=== PATIENT | male | born 1960 | race Caucasian/White ===

== ENCOUNTER 2016-12-11 08:33 | Inpatient (IN) | payer MEDICARE ==
[~2016-12-11 08:33] MED LIST: ACETAMINOPHEN325 MG PO; ATARAX 25 MG TA25 MG PO; ATIVAN0.5 MG PO; BAYER CHEWABLE81 MG PO; COLACE100 MG PO; DILANTIN100 MG PO; FERROUS SULFAT325 MG PO; IPRAT-ALBUT 0.5-3 ML UPD; MIRALAX17 GM PO; NICODERM C1 PATCH .1 TD; NORCO 7.5/325 T1 TA1 PO; PHENOBARBITAL97.2 MG PO; PHENYTEK300 MG PO; PLAVIX75 MG PO; PLETAL100 MG PO; PREDNISONE10 MG PO; PROAIR HFA8.5 GM INH; PROTONIX40 MG PO; ROBAXIN500 MG PO; ZOCOR10 MG PO
--- NOTE | 2016-12-11 09:00 | NUR ---
TO ROOM 2238 FROM HOME.PT WITHOUT DISTRESS.REMAINS WITHOUTT SIGNS OF BLEEDING. ASSESSMENT PER ADMIT PACK.CALL LIGHT IN REACH.MONITOR FOR NEEDS
[2016-12-11 09:22] LABS: BASOPHILS 0.8 % (0-2); EOSINOPHILS 1.9 % (0-7); HEMATOCRIT 31.9 % (42.0-54.0); IMMATURE GRANULOCYTES 0.3 % (0-5); LYMPHOCYTES 24.5 % (15-50); MCH 27.5 pg (26.0-34.0); MCHC 31.3 g/dL (31.0-37.0); MCV 87.9 fL (80.0-100.0); MEAN PLATELET VOLUME 8.3 fL (7.4-10.4); MONOCYTES 14.8 % (2-11); NEUTROPHILS 57.7 % (40-80); RBC 3.63 10x6/uL (4.20-6.10); RDW 15.2 % (11.5-14.5); WBC 7.7 10x3/uL (4.8-10.8)
[2016-12-11] MEDS ORDERED: XARELTO20 MG PO (09:32)
[2016-12-11 09:34] LABS: PLATELET COUNT 385 10x3/uL (130-400)
[2016-12-11 09:37] LABS: ALBUMIN 3.9 g/dL (3.4-5.0); ANION GAP 15.7 mmol/L (8-16); BILIRUBIN - TOTAL 0.22 mg/dL (0.2-1.3); CALCIUM 8.8 mg/dL (8.5-10.1); CARBON DIOXIDE 22.8 mmol/L (21.0-32.0); CREATININE - SERUM 1.2 mg/dL (0.6-1.3); POTASSIUM - SERUM 3.5 mmol/L (3.5-5.1); PROTEIN - SERUM 8.1 g/dL (6.4-8.2)
[2016-12-11 09:38] VITALS: BP 130/77; BMI 22.2
[2016-12-11 09:47] LABS: APTT 34.5 SECONDS (22.8-39.4); INR 0.89 (0.85-1.17); PROTIME 11.9 SECONDS (11.6-15.0)
[2016-12-11 11:14] LABS: ERYTHROCYTE SEDIMENTATION RATE 32 mm/hr (0-20)
[2016-12-11 12:00] VITALS: BP 125/77
--- NOTE | 2016-12-11 13:40 | NUR ---
UNIT 1 OF 2 PRBC'S INITIATED.PT WITHOUT REACTIONS AT THIS TIME.MONITOR FOR NEEDS
--- NOTE | 2016-12-11 13:51 | NUR ---
URINE TO LAB ORDERED
[2016-12-11 14:42] LABS: APPEARANCE CLEAR (CLEAR); BILIRUBIN NEGATIVE (NEGATIVE); COLOR STRAW (YELLOW); GLUCOSE NEGATIVE (NEGATIVE); KETONE NEGATIVE (NEGATIVE); NITRITE NEGATIVE (NEGATIVE); PROTEIN NEGATIVE (NEGATIVE); SPECIFIC GRAVITY 1.005 (1.005-1.020); UROBILINOGEN NORMAL (NORMAL)
[2016-12-11 14:44] LABS: BACTERIA MANY /hpf (NONE SEEN)
--- NOTE | 2016-12-11 17:40 | NUR ---
UNIT 1 OF 2 BRBC'S COMPLETE.PT REMAINED WITHOUT REACTIONS
[2016-12-11 20:00] VITALS: BP 126/83
--- NOTE | 2016-12-11 20:00 | NUR ---
REC'D LYING IN BED. ALERT AND ORIENTED X4. REPORTED PAIN 10/10, WILL ADMIN PAIN MEDS PRESCRIBED. DENIED NEEDS AT THIS TIME. INSTRUCTED TO CALL IF NEEDED ANYTHING. IS STILL TO REC 1 UNIT OF BLOOD. WILL CONT TO MONITOR. NO DISTRESS NOTED. BED LOW, LOCKED, CALL LIGHT IN REACH.
--- NOTE | 2016-12-11 21:30 | NUR ---
PRBC'S STARTED AT THIS TIME. VSS. WILL MONITOR. SIDE RAILS X 2. BED LOW. CALL LIGHT IN REACH.
--- NOTE | 2016-12-11 22:20 | NUR ---
BLOOD STARTED AT 2130, HAVE BEEN WATCHING FOR AND HOUR NOW, NO DISTRESS NOTED. WILL CONT TO MONITOR.
--- NOTE | 2016-12-12 00:13 | NUR ---
PTT IS 46.9 PER HEPARIN PROTOCOL. TURNED DRIP UP BY 100UNITS PER PROTOCOL NOW IS AT 9. PUT IN THE REDRAW FOR THE PTT AT 0615.
--- NOTE | 2016-12-12 00:29 | NUR ---
BLOOD FINISHED AT 0030 NO DISTRESS NOTED. WILL CONT TO MONITOR.
[2016-12-12 04:00] VITALS: BP 137/81
[2016-12-12 05:54] LABS: BASOPHILS 0.9 % (0-2); EOSINOPHILS 1.9 % (0-7); HEMATOCRIT 35.9 % (42.0-54.0); HEMOGLOBIN 11.3 g/dL (13.5-17.5); IMMATURE GRANULOCYTES 0.3 % (0-5); LYMPHOCYTES 23.8 % (15-50); MCH 27.8 pg (26.0-34.0); MCHC 31.5 g/dL (31.0-37.0); MCV 88.2 fL (80.0-100.0); MEAN PLATELET VOLUME 8.8 fL (7.4-10.4); MONOCYTES 14.4 % (2-11); NEUTROPHILS 58.7 % (40-80); PLATELET COUNT 339 10x3/uL (130-400); RBC 4.07 10x6/uL (4.20-6.10); RDW 15.5 % (11.5-14.5); WBC 6.7 10x3/uL (4.8-10.8)
[2016-12-12 06:22] LABS: ALBUMIN 3.3 g/dL (3.4-5.0); ALKALINE PHOSPHATASE 104 U/L (46-116); ALT (SGPT) 23 U/L (10-68); BILIRUBIN - TOTAL 0.25 mg/dL (0.2-1.3); CALC OSMOLALITY 275 mosm/kg (275-300); CALCIUM 8.3 mg/dL (8.5-10.1); CARBON DIOXIDE 21.8 mmol/L (21.0-32.0); CHLORIDE - SERUM 104 mmol/L (98-107); GLUCOSE 74 mg/dL (74-106); POTASSIUM - SERUM 3.7 mmol/L (3.5-5.1); PROTEIN - SERUM 7.1 g/dL (6.4-8.2); SODIUM 139 mmol/L (136-145); UREA NITROGEN 11 mg/dL (7-18); eGFR NON AFRICAN AMERICAN 82 mL/min (90-120)
--- NOTE | 2016-12-12 08:00 | NUR ---
ASSESSMENT PER FLOW SHEET.PT WITHOUT DISTRESS.CALL LIGHT IN REACH.NPO FOR PROCEDURE
[2016-12-12 08:32] VITALS: BP 133/81
--- NOTE | 2016-12-12 08:57 | NUR ---
HEPARIN DRIP STOPPED ORDERED.
--- NOTE | 2016-12-12 09:08 | HP ---
PATIENT: EVELIA SONI MEDICAL RECORD: [id number] ACCOUNT: [id number] LOCATION:D.[facility] : 60 ADMISSION DATE: 12/11/16 HISTORY AND PHYSICAL EXAMINATION Mr. Soni is going to be coming in as a direct admit on 12/11. HPI: Mr. Soni is a 56-year-old white male that has been recently experiencing bright red blood per rectum. He has a history of angioectasias that has required treatment in the past. He is on chronic anticoagulation due to severe peripheral vascular disease and has had problems with clotting. Unfortunately, he continues to smoke. He is currently on Xarelto. He is going to need to be placed on a heparin bridge and started on a prep so he can undergo colonoscopy. He has seen Dr. Otero in the past. I have discussed this case with her and she will be seeing him in consult. His hemoglobin today was 9.0, he is normally around 10. We will follow this and start a heparin drip without a bolus. PAST MEDICAL HISTORY: Significant for DVT, peripheral vascular disease, coagulopathy, systemic lupus erythematosus, and seizure disorder. He is seeing Dr. Baca for his clotting disorder. COPD, hyperlipidemia, hypertension, and osteoporosis due to chronic steroid therapy. PAST SURGICAL HISTORY: Previous surgeries include cholecystectomy, umbilical hernia repair, and fem-pop bypass by Dr. Thomas in 2007 and bypass grafts cleaned out in 2014. ALLERGIES: SULFA. CURRENT MEDICATIONS: Dilantin 100 mg capsules two b.i.d., simvastatin 10 mg at bedtime, prednisone 10 mg a day, Morgan 10 t.i.d., clonidine 0.1 mg b.i.d., ProAir q.i.d. p.r.n., Miacalcin one spray every other nostril, potassium 20 mEq daily, hydroxyzine 25 mg one q. 4-6 p.r.n. itching, lorazepam 0.5 mg b.i.d. p.r.n. anxiety, phenobarbital 100 mg b.i.d., methocarbamol 500 mg one to two b.i.d. p.r.n., pantoprazole 40 mg daily, ferrous sulfate 325 t.i.d., Xarelto 20 mg daily, and Tylenol p.r.n. FAMILY HISTORY: Significant for congestive heart failure, cancers, leukemia, COPD, and rheumatoid arthritis. SOCIAL HISTORY: The patient is . He continues to smoke about a pack per day. REVIEW OF SYSTEMS: He is complaining of some bright red blood per rectum. No abdominal pain. No chest pain. No more shortness of breath than usual. He has chronic back pain, chronic limb pain, and chronic leg pain. He has chronic claudication. PHYSICAL EXAMINATION: HEAD: Normocephalic. NECK: Soft and supple. HEART: Regular. LUNGS: Clear. ABDOMEN: Soft. EXTREMITIES: Right leg pulses nonpalpable, which is chronic. HISTORY AND PHYSICAL [id number] EVELIA SONI NEUROLOGIC: Without any gross focal deficits. IMPRESSION: 1. Lower GI bleeding. 2. History of angioectasias of the colon. 3. Coagulopathy, requiring chronic anticoagulation. 4. Peripheral vascular disease. 5. COPD. 6. Tobacco abuse. 7. Hypertension. 8. Hyperlipidemia. 9. Seizure disorder. PLAN: Admit. IV fluids. Stop Xarelto. Start heparin drip. Consult GI. Clear liquids. See orders for plan. TRANSINT:[id number] Voice Confirmation ID: [id number] DOCUMENT ID: [id number] ADARSH BANG DO at 0908 CC: [id number] DICTATION DATE: 12/10/161816 DIRECTOR OF PLAYER PERSONNEL: 12/10/161932 ADM IN [facility] [address] [place] [address]
--- NOTE | 2016-12-12 10:59 | NUR ---
Patient Name: EVELIA SONI Admission Status: Urgent Accout number: [id number] Admission Date: 12-11-2016 : 1960 Admission Diagnosis: Attending: JAKE COPPOLA Current LOS: 1 Anticipated DC Date: 12-16-2016 Planned Disposition: Home Primary Insurance: MEDICARE A & B Discharge Planning Comments: CM MET WITH PATIENT REGARDING D/C NEEDS AND PLANS. PATIENT STATED HE LIVES WITH HIS (SOO) AND THEY HAVE 4 STEPS W/O RAILS TO ENTER HOME AND NO STAIRS INSIDE. PATIENT STATED ONE OF HIS NEPHEWS WILL DRIVE HIM HOME AT DISCHARGE. PATIENT STATED HE IS INDEPENDENT WITH HIS CARE AND HAS A WALKER, WHEELCHAIR, BS COMMODE, SHOWER CHAIR, CANE, AND NEBULIZER AT HOME. PATIENTS PCP IS DR. BANG AND PHARMACY IS [facility] [place]. PATIENT REFUSING HOME HEALTH. CM WILL CONTINUE TO FOLLOW PATIENT WITH D/C NEEDS AND PLANS. PCP DR. [facility]- [phone] [place] ([place]) [phone] () Five Piece Expansion Maker Hand: Ester Hale Is the patient Alert and Oriented? Yes 0 * How many steps to enter\exit or inside your home? 4 W/O RAIL 0 * PCP DR. BANG 0 * Pharmacy [facility] [place] 0 * Preadmission Environment Home with Family 0 * ADLs Independent 0 * Equipment Bedside Commode Cane Nebulizer Shower Chair Walker Wheelchair 0 * List name and contact numbers for known caregivers / representatives who currently or will assist patient after discharge: WALKER, WHEELCHAIR, BS COMMODE, SHOWER CHAIR, CANE, NEBULIZER 0 * Community resources currently utilized None 0 * Additional services required to return to the preadmission environment? Yes 0 * Can the patient safely return to the preadmission environment? Yes 0 * Has this patient been hospitalized within the prior 30 days at any hospital? No 0 Grand Total: 0
[2016-12-12 12:03] VITALS: BP 143/79
--- NOTE | 2016-12-12 14:13 | NUR ---
PRE MEDS ORDERED
--- NOTE | 2016-12-12 14:19 | NUR ---
TO GI LAB
--- NOTE | 2016-12-12 19:13 | NUR ---
HAS REMAINED WITHOUT BLEEDING. PT REMAINS WITHOUT DISTRESS. DENIES NEEDS. CONT PLAN OF CARE
[2016-12-12 20:00] VITALS: BP 139/74
[2016-12-13] VITALS (7 sets, daily range): BP systolic 119–146; BP diastolic 64–80
[2016-12-13 05:41] LABS: BASOPHILS 0.7 % (0-2); EOSINOPHILS 3.4 % (0-7); HEMATOCRIT 35.6 % (42.0-54.0); HEMOGLOBIN 11.1 g/dL (13.5-17.5); IMMATURE GRANULOCYTES 0.2 % (0-5); LYMPHOCYTES 27.3 % (15-50); MCH 27.5 pg (26.0-34.0); MCHC 31.2 g/dL (31.0-37.0); MCV 88.1 fL (80.0-100.0); MEAN PLATELET VOLUME 8.6 fL (7.4-10.4); MONOCYTES 12.3 % (2-11); NEUTROPHILS 56.1 % (40-80); PLATELET COUNT 330 10x3/uL (130-400); RBC 4.04 10x6/uL (4.20-6.10); RDW 15.5 % (11.5-14.5); WBC 5.4 10x3/uL (4.8-10.8)
[2016-12-13 06:17] LABS: ALBUMIN 3.2 g/dL (3.4-5.0); ALKALINE PHOSPHATASE 95 U/L (46-116); ALT (SGPT) 19 U/L (10-68); CALC OSMOLALITY 270 mosm/kg (275-300); CALCIUM 8.2 mg/dL (8.5-10.1); CARBON DIOXIDE 19.8 mmol/L (21.0-32.0); CHLORIDE - SERUM 108 mmol/L (98-107); GLUCOSE 72 mg/dL (74-106); POTASSIUM - SERUM 3.5 mmol/L (3.5-5.1); PROTEIN - SERUM 6.4 g/dL (6.4-8.2); SODIUM 137 mmol/L (136-145); eGFR NON AFRICAN AMERICAN 82 mL/min (90-120)
[2016-12-13 06:21] LABS: UREA NITROGEN 8 mg/dL (7-18)
--- NOTE | 2016-12-13 08:00 | NUR ---
ASSESSMENT PER FLOW SHEET.PT WITHOUT DISTRESS.DENIES NEEDS AT PRESENT.CALL LIGHT IN REACH.
--- NOTE | 2016-12-13 10:00 | NUR ---
HEPARIN OFF ORDERED
--- NOTE | 2016-12-13 11:00 | NUR ---
CONSENTS TO CHART ORDERED
--- NOTE | 2016-12-13 14:57 | NUR ---
BACK FROM SURGERY.PT VERY ANXIOUS AND IS MAD. HE IS WANTING UP TO SHOWER.INSTRUCTED PT HE HAD TO WAKE FIRST.IV HEPARIN RESUMED PER DR DIALLO.MONITOR FOR NEEDS
[2016-12-14] VITALS: BP 132/66
[2016-12-14 04:00] VITALS: BP 141/71
[2016-12-14 06:18] LABS: EOSINOPHILS 2.4 % (0-7); HEMATOCRIT 37.7 % (42.0-54.0); HEMOGLOBIN 11.7 g/dL (13.5-17.5); IMMATURE GRANULOCYTES 0.1 % (0-5); LYMPHOCYTES 24.9 % (15-50); MEAN PLATELET VOLUME 9.1 fL (7.4-10.4); MONOCYTES 9.6 % (2-11); PLATELET COUNT 323 10x3/uL (130-400); RBC 4.18 10x6/uL (4.20-6.10); RDW 15.3 % (11.5-14.5)
[2016-12-14 06:19] LABS: MCV 90.2 fL (80.0-100.0); WBC 8.2 10x3/uL (4.8-10.8)
[2016-12-14 06:35] LABS: ALBUMIN 3.4 g/dL (3.4-5.0); ANION GAP 14.1 mmol/L (8-16); BILIRUBIN - TOTAL 0.23 mg/dL (0.2-1.3); CALCIUM 8.1 mg/dL (8.5-10.1); CARBON DIOXIDE 23.7 mmol/L (21.0-32.0); CREATININE - SERUM 1.1 mg/dL (0.6-1.3); POTASSIUM - SERUM 3.8 mmol/L (3.5-5.1); PROTEIN - SERUM 7.1 g/dL (6.4-8.2)
[2016-12-14 08:45] VITALS: BP 143/79
[2016-12-14 11:07] VITALS: BP 151/86
--- NOTE | 2016-12-14 14:45 | NUR ---
PATIENT RECIEVED DISCHARGE INSTRUCTIONS. VERBALIZED UNDERSTANDING. NO QUESTIONS AT THIS TIME. IV X 2 REMOVED WITH CATH TIPS INTACT. AWAITING FAMILY FOR TRANSPORTATION. CALL LIGHT WITHIN REACH.
--- NOTE | 2016-12-20 12:36 | OP ---
PATIENT NAME: EVELIA SONI MEDICAL RECORD: [id number] :60 LOCATION:D.[facility] ADMISSION DATE:12/11/16 SURGEON: KP DIALLO MD DATE OF OPERATION: 12/13/2016 PREOPERATIVE DIAGNOSES: 1. Lower gastrointestinal bleed. 2. Internal hemorrhoids. 3. Chronic obstructive pulmonary disease. 4. Acute blood-loss anemia. 5. Peripheral vascular disease. 6. Factor V Leiden deficiency. 7. History of deep vein thrombosis, on chronic Coumadin use. POSTOPERATIVE DIAGNOSES: 1. Lower gastrointestinal bleed. 2. Internal hemorrhoids. 3. Chronic obstructive pulmonary disease. 4. Acute blood-loss anemia. 5. Peripheral vascular disease. 6. Factor V Leiden deficiency. 7. History of deep vein thrombosis, on chronic Coumadin use. PROCEDURE IN DETAIL: Anal exam under anesthesia with hemorrhoid banding times 3. SURGEON: Kp Diallo MD REPORT OF PROCEDURE: The patient was placed in lithotomy position and the perianal region was prepped and draped in sterile fashion. An anoscope was inserted and a 360-degree inspection was performed. The patient had a large mixed hemorrhoid, which was mainly an internal component, but was extending past the dentate line. This was friable and felt to be the likely cause of the bleeding. This was right in the midline in the 6 o'clock position. On the left lateral aspect, there was also an internal hemorrhoid, which was smaller and a final right posterior hemorrhoid again was a smaller internal type. These 3 hemorrhoids were all banded with good collection of tissue found in each group. There was no sign of any bleeding at the conclusion of the case. I infused 1 mL of 0.25% Marcaine with epi into the surrounding tissues. COMPLICATIONS: None. CONDITION: Stable. ANESTHESIA: General endotracheal. BLOOD LOSS: Minimal. TRANSINT:[id number] Voice Confirmation ID: [id number] DOCUMENT ID: [id number] OPERATIVE REPORT [id number] NAEEVELIA KP COCHRAN MD at 1236 CC: [id number] DICTATION DATE: 12/13/16 1419 ROUGH AND TRUING MACHINE OPERATOR: 12/13/16 1522 DIS IN 12/14/16 [place] [address]
== END 2016-12-14 16:26 | disposition home or self-care (01) | DRG 348 ==
LOC: D.MS 08:33
PROVIDERS: Family Medicine; Internal Medicine Gastroenterology; ADMIT Family Medicine
PROC: 0DBL8ZZ Excision of Transverse Colon, Via Natural or Artificial Opening Endoscopic (ICD-10-PCS; principal; 2016-12-12 14:30)
PROC: 06LY0CC Occlusion of Hemorrhoidal Plexus with Extraluminal Device, Open Approach (ICD-10-PCS; 2016-12-13)
DX: K64.8 Other hemorrhoids (principal); F17.203 Nicotine dependence unspecified, with withdrawal; D62 Acute posthemorrhagic anemia; D68.51 Activated protein C resistance; G40.909 Epilepsy, unspecified, not intractable, without status epilepticus; J44.9 Chronic obstructive pulmonary disease, unspecified; E78.5 Hyperlipidemia, unspecified; M81.8 Other osteoporosis without current pathological fracture; K55.20 Angiodysplasia of colon without hemorrhage; T38.0X5A Adverse effect of glucocorticoids and synthetic analogues, initial encounter; G89.29 Other chronic pain; I10 Essential (primary) hypertension; M32.9 Systemic lupus erythematosus, unspecified

== ENCOUNTER 2017-10-30 19:04 | Emergency (ER) | payer MEDICARE ==
[~2017-10-30] VITALS: Ht 175.3 cm; Wt 68.2 kg
[~2017-10-30 19:04] MED LIST changes: +ASPIRIN325 MG PO; +BACLOFEN10 MG PO; +CATAPRES0.1 MG PO; +FLORAJEN3 CAPS460 MG PO; +HYDROCODONE-APA1 TAB PO; +KEFLEX500 MG PO; +MIACALCIN NASA3.7 ML NASAL; +NICODERM C1 PATCH .1 TRANSDERM; +VENTOLIN HFA18 GM INH; +XARELTO20 MG PO
[2017-10-30 19:06] VITALS: Ht 175.3 cm; Wt 68.2 kg
[2017-10-30 19:25] LABS: BASOPHILS 1.1 % (0-2); EOSINOPHILS 2.6 % (0-7); HEMATOCRIT 33.1 % (42.0-54.0); HEMOGLOBIN 10.6 g/dL (13.5-17.5); IMMATURE GRANULOCYTES 0.2 % (0-5); LYMPHOCYTES 24.8 % (15-50); MCH 30.8 pg (26.0-34.0); MCV 96.2 fL (80.0-100.0); MEAN PLATELET VOLUME 8.6 fL (7.4-10.4); MONOCYTES 11.4 % (2-11); NEUTROPHILS 59.9 % (40-80); RBC 3.44 10x6/uL (4.20-6.10); RDW 13.1 % (11.5-14.5); WBC 6.2 10x3/uL (4.8-10.8)
[2017-10-30 19:27] LABS: PLATELET COUNT 283 10x3/uL (130-400)
[2017-10-30 19:32] LABS: APTT 38.4 SECONDS (22.8-39.4)
[2017-10-30 19:36] LABS: INR 1.1 (0.85-1.17); PROTIME 13.8 SECONDS (11.6-15.0)
[2017-10-30 19:39] LABS: ALBUMIN 3.3 g/dL (3.4-5.0); ALKALINE PHOSPHATASE 158 U/L (46-116); ALT (SGPT) 19 U/L (10-68); BILIRUBIN - TOTAL 0.12 mg/dL (0.2-1.3); CALC OSMOLALITY 272 mosm/kg (275-300); CALCIUM 8.4 mg/dL (8.5-10.1); CARBON DIOXIDE 24.6 mmol/L (21.0-32.0); CHLORIDE - SERUM 104 mmol/L (98-107); GLUCOSE 81 mg/dL (74-106); POTASSIUM - SERUM 4.1 mmol/L (3.5-5.1); PROTEIN - SERUM 7.2 g/dL (6.4-8.2); SODIUM 136 mmol/L (136-145); UREA NITROGEN 18 mg/dL (7-18); eGFR NON AFRICAN AMERICAN 82 mL/min (90-120)
[2017-10-31 00:03] VITALS: BP 126/78
== END 2017-10-31 00:04 | disposition home or self-care (01) ==
LOC: D.ER 19:04
PROVIDERS: Family Medicine
DX: R04.0 Epistaxis (principal); Z79.01 Long term (current) use of anticoagulants; Z86.718 Personal history of other venous thrombosis and embolism; J44.9 Chronic obstructive pulmonary disease, unspecified; F17.200 Nicotine dependence, unspecified, uncomplicated

== ENCOUNTER 2018-02-23 12:24 | Emergency (ER) | payer MEDICARE ==
[~2018-02-23] VITALS: Ht 175.3 cm; Wt 67.7 kg
[2018-02-23 12:30] VITALS: Ht 175.3 cm; Wt 67.7 kg
[2018-02-23 12:55] LABS: BASOPHILS 0.8 % (0-2); EOSINOPHILS 2.6 % (0-7); HEMATOCRIT 35.3 % (42.0-54.0); IMMATURE GRANULOCYTES 0.1 % (0-5); LYMPHOCYTES 18.4 % (15-50); MCH 28.1 pg (26.0-34.0); MCHC 31.2 g/dL (31.0-37.0); MCV 90.3 fL (80.0-100.0); MEAN PLATELET VOLUME 8.8 fL (7.4-10.4); MONOCYTES 10.7 % (2-11); NEUTROPHILS 67.4 % (40-80); RBC 3.91 10x6/uL (4.20-6.10); RDW 14.6 % (11.5-14.5); WBC 7.3 10x3/uL (4.8-10.8)
[2018-02-23 13:07] LABS: ALBUMIN 3.8 g/dL (3.4-5.0); ANION GAP 15.9 mmol/L (8-16); BILIRUBIN - TOTAL 0.19 mg/dL (0.2-1.3); CALCIUM 8.9 mg/dL (8.5-10.1); CARBON DIOXIDE 23.4 mmol/L (21.0-32.0); CREATININE - SERUM 1.4 mg/dL (0.6-1.3); INR 0.99 (0.85-1.17); PLATELET COUNT 363 10x3/uL (130-400); POTASSIUM - SERUM 4.3 mmol/L (3.5-5.1); PROTEIN - SERUM 8.2 g/dL (6.4-8.2); PROTIME 12.6 SECONDS (11.6-15.0)
[2018-02-23 13:09] LABS: D-DIMER-QUANTITATIVE 0.61 ug/mLFEU (0.20-0.54)
[2018-02-23] MEDS ORDERED: GABAPENTIN100 MG PO (14:16)
[2018-02-23 15:11] VITALS: BP 156/96
== END 2018-02-23 15:29 | disposition home or self-care (01) ==
LOC: D.ER 12:24
PROVIDERS: Emergency Medicine
DX: M79.662 Pain in left lower leg (principal); M79.661 Pain in right lower leg; Z86.718 Personal history of other venous thrombosis and embolism; G62.9 Polyneuropathy, unspecified; G40.909 Epilepsy, unspecified, not intractable, without status epilepticus; J44.9 Chronic obstructive pulmonary disease, unspecified

== ENCOUNTER → 2018-02-25 08:55 | Outpatient (CLI) | payer MEDICARE ==
[2018-02-23 12:30] VITALS: BMI 22.0
[~2018-02-25 08:55] MED LIST changes: +GABAPENTIN100 MG PO
== END | disposition home or self-care (01) ==
LOC: D.CT 08:55
DX: I73.9 Peripheral vascular disease, unspecified (principal)

== ENCOUNTER 2018-07-01 08:07 | Outpatient (CLI) | payer MEDICARE ==
[~2018-07-01] VITALS: Ht 175.3 cm; Wt 66.4 kg
[2018-07-01 09:22] VITALS: BP 116/68; Ht 175.3 cm; Wt 66.4 kg
== END 2018-07-01 13:40 | disposition home or self-care (01) ==
LOC: D.OPS 08:07
PROVIDERS: ATTEND Family Medicine
DX: D64.9 Anemia, unspecified (principal)

== ENCOUNTER → 2018-07-16 10:28 | Day surgery (SDC) | payer MEDICARE ==
[2018-07-01 09:22] VITALS: BMI 21.6
== END | disposition home or self-care (01) ==
LOC: D.OPS 10:28
PROVIDERS: ATTEND Family Medicine
DX: D64.9 Anemia, unspecified (principal)

== ENCOUNTER 2018-07-16 13:00 | Outpatient (CLI) | payer MEDICARE ==
[2018-07-01 09:22] VITALS: BMI 21.6
--- NOTE | 2018-07-16 15:02 | NUR ---
1055-RECD TO OUTPATIENT. TO WAITING ROOM. WAS SCHEDULED FOR YESTERDAY BUT DIDNT WANT TO COME YESTERDAY. EXPLAINED WILL BE A COUPLE OF HOURS BUT WILL WORK HIM IN. 1400-TO ROOM. PATIENT REFUSES BLOOD TRANSFUSION UNLESS GETTING SCOPE WITH DR. MATA. STATES HE IS NOT SCHEDULED FOR SCOPE TODAY. HE SAYS HE HAS AN APPOINTMENT TO SEE DR MATA BUT SINCE HE IS HERE TODAY TELL HER TO COME TO HIS ROOM TO SEE HIM. EXPLAINED USUALLY GET BLOOD FIRST THEN INVESTIGATES WHY BLOOD COUNT IS LOW. DISCUSSED AT LENGTH. PATIENT OBSTINATE ABOUT HAVING A SCOPE TODAY. HAS NOT BEEN NPO. ADVISED PATIENT HE HAS TO CONSENT TO BLOOD BEFORE WE GIVE IT. HE WILL THINK ABOUT IT. 1445-RETURNED TO ROOM, PATIENT HAS LEFT WITHOUT TREATMENT. BLOOD BANK NOTIFIED.
== END 2018-07-16 14:45 | disposition home or self-care (01) ==
LOC: D.OPS 13:00
PROVIDERS: ATTEND Family Medicine
DX: D64.9 Anemia, unspecified (principal)

== ENCOUNTER 2018-07-17 20:11 | Emergency (ER) | payer MEDICARE ==
[2018-07-17 20:24] VITALS: BMI 21.6
[2018-07-17 21:01] LABS: BASOPHILS 0.9 % (0-2); EOSINOPHILS 0.9 % (0-7); HEMATOCRIT 26.1 % (42.0-54.0); HEMOGLOBIN 7.7 g/dL (13.5-17.5); IMMATURE GRANULOCYTES 0.2 % (0-5); LYMPHOCYTES 18.2 % (15-50); MCH 23.2 pg (26.0-34.0); MCHC 29.5 g/dL (31.0-37.0); MCV 78.6 fL (80.0-100.0); MEAN PLATELET VOLUME 8.4 fL (7.4-10.4); MONOCYTES 7.9 % (2-11); NEUTROPHILS 71.9 % (40-80); PLATELET COUNT 426 10x3/uL (130-400); RBC 3.32 10x6/uL (4.20-6.10); RDW 17.4 % (11.5-14.5); WBC 6.4 10x3/uL (4.8-10.8)
[2018-07-17 21:11] LABS: APTT 33.8 SECONDS (22.8-39.4); INR 1.06 (0.85-1.17); PROTIME 13.3 SECONDS (11.6-15.0)
[2018-07-17 21:26] LABS: ALBUMIN 3.6 g/dL (3.4-5.0); ANION GAP 17.2 mmol/L (8-16); BILIRUBIN - TOTAL 0.21 mg/dL (0.2-1.3); CALCIUM 8.5 mg/dL (8.5-10.1); CARBON DIOXIDE 21.6 mmol/L (21.0-32.0); CREATININE - SERUM 1.3 mg/dL (0.6-1.3); POTASSIUM - SERUM 3.8 mmol/L (3.5-5.1); PROTEIN - SERUM 7.7 g/dL (6.4-8.2)
[2018-07-18 02:22] VITALS: BP 135/77
== END 2018-07-18 02:19 | disposition home or self-care (01) ==
LOC: D.ER 20:11
PROVIDERS: Family Medicine
DX: D64.9 Anemia, unspecified (principal)

== ENCOUNTER 2018-08-23 14:16 | Inpatient (IN) | payer MEDICARE, MEDICAID ==
[~2018-08-23] VITALS: Ht 175.3 cm; Wt 59.4 kg
[2018-08-23 15:23] LABS: BASOPHILS 0.6 % (0-2); EOSINOPHILS 0.3 % (0-7); HEMATOCRIT 23.6 % (42.0-54.0); IMMATURE GRANULOCYTES 0.2 % (0-5); LYMPHOCYTES 12.8 % (15-50); MCH 23.6 pg (26.0-34.0); MCHC 29.7 g/dL (31.0-37.0); MCV 79.7 fL (80.0-100.0); MEAN PLATELET VOLUME 8.6 fL (7.4-10.4); MONOCYTES 9.6 % (2-11); NEUTROPHILS 76.5 % (40-80); PLATELET COUNT 342 10x3/uL (130-400); RBC 2.96 10x6/uL (4.20-6.10); RDW 18.6 % (11.5-14.5); WBC 6.6 10x3/uL (4.8-10.8)
[2018-08-23 15:46] LABS: ALBUMIN 3.6 g/dL (3.4-5.0); ANION GAP 18.2 mmol/L (8-16); BILIRUBIN - TOTAL 0.21 mg/dL (0.2-1.3); CALCIUM 8.8 mg/dL (8.5-10.1); CARBON DIOXIDE 19.8 mmol/L (21.0-32.0); CREATININE - SERUM 1.4 mg/dL (0.6-1.3); PROTEIN - SERUM 8.1 g/dL (6.4-8.2)
--- NOTE | 2018-08-23 16:26 | NUR ---
PT SITTING UP IN BED. NO DISTRESS NOTED AT THIS TIME. VSS. WILL CONTINUE TO MONITOR. FAMILY AT BEDSIDE.
[2018-08-23 17:00] VITALS: BP 129/72
--- NOTE | 2018-08-23 20:35 | NUR ---
PT PHYSICALLY LEFT ED AT THIS TIME
--- NOTE | 2018-08-23 20:45 | NUR ---
RECEIVED PT FROM ER TO ROOM 2302. PT ATTACHED TO MONITORS, MONITORS ARE ALL WORKING CORRECTLY. ADMISSION INFORMATION COMPLETED, SEE FLOWSHEET FOR DETAILS. PT ARRIVED ON UNIT WITH FIRST OF TWO UNITS OF PRBC'S INFUSING. PT'S FAMILY AT BEDSIDE SHORTLY AFTER ARRIVAL TO HELP ANSWER QUESTIONS. NO SIGNS OF ACUTE DISTRESS. WILL CONTINUE TO MONITOR.
[2018-08-23 21:00] VITALS: BP 143/84
[2018-08-23] MEDS ORDERED: PROTONIX40 MG PO (21:22)
[2018-08-23 21:49] VITALS: BP 152/85; BMI 19.3
[2018-08-23 22:00] VITALS: BP 134/78
--- NOTE | 2018-08-23 22:50 | NUR ---
MOVING PT TO CV5.
[2018-08-23 23:30] VITALS: BP 120/74
--- NOTE | 2018-08-23 23:34 | NUR ---
PT RECEIVED TO UNIT AT 2315 VIA WHEELCHAIR. PT TRANSFERRED SELF TO BED WITHOUT DIFFICULTY. PLACED ON MONITOR. VSS. PT GIVEN CLEAR LIQUIDS PER REQUEST. NO COMPLAINTS OF PAIN. RECEIVING SECOND UNIT OF PRBC. CALL LIGHT IN REACH. WILL CONTINUE TO OBSERVE.
[2018-08-24] VITALS (14 sets, daily range): BP systolic 106–188; BP diastolic 65–87; Ht 175.3 cm; Wt 59.4 kg
--- NOTE | 2018-08-24 01:15 | NUR ---
PT MONITORS NOT READING SPO2 WITH LINES UNPLUGGED AND REPLUGGED, RECEIVING A READING OF 98% AT THIS TIME. PT WAKING UP AND USING URINAL AND EMPTIED. NO NEEDS MADE KNOWN. WILL CONTINUE TO OBSERVE. CALL LIGHT IN REACH.
--- NOTE | 2018-08-24 01:55 | NUR ---
PT ASSISTED TO BATHROOM, URINE ONLY NOTED. AMULATION SLOW AND STEADY. ASSIST GIVEN WITH IV PUMP AND MONITOR LINES. PT BACK IN BED ON MONITOR. VSS. CALL LIGHT IN REACH. WILL CONTINUE TO OBSERVE.
--- NOTE | 2018-08-24 03:19 | NUR ---
PT RESTING WITH EYES CLOSED AND CHEST RISING. EASILY AWOKEN TO VERBAL STIMULI. REASSESSMENT COMPLETED, SEE FLOW SHEET. CALL LIGHT IN REACH. WILL CONTINUE TO OBSERVE.
[2018-08-24 03:53] LABS: BASOPHILS 0.6 % (0-2); EOSINOPHILS 1.7 % (0-7); HEMATOCRIT 26.3 % (42.0-54.0); HEMOGLOBIN 8.2 g/dL (13.5-17.5); IMMATURE GRANULOCYTES 0.2 % (0-5); LYMPHOCYTES 19.6 % (15-50); MCH 24.8 pg (26.0-34.0); MCHC 31.2 g/dL (31.0-37.0); MCV 79.5 fL (80.0-100.0); MEAN PLATELET VOLUME 8.6 fL (7.4-10.4); MONOCYTES 11.4 % (2-11); NEUTROPHILS 66.5 % (40-80); PLATELET COUNT 277 10x3/uL (130-400); RBC 3.31 10x6/uL (4.20-6.10); RDW 18.2 % (11.5-14.5)
[2018-08-24 03:56] LABS: WBC 4.8 10x3/uL (4.8-10.8)
[2018-08-24 04:08] LABS: CALCIUM 7.8 mg/dL (8.5-10.1); CARBON DIOXIDE 20.5 mmol/L (21.0-32.0); CHLORIDE - SERUM 105 mmol/L (98-107); MAGNESIUM - SERUM 1.9 mg/dL (1.8-2.4); PHOSPHOROUS 3.3 mg/dL (2.5-4.9); POTASSIUM - SERUM 3.6 mmol/L (3.5-5.1); SODIUM 137 mmol/L (136-145)
[2018-08-24 04:14] LABS: CALC OSMOLALITY 274 mosm/kg (275-300); CREATININE - SERUM 0.9 mg/dL (0.6-1.3); GLUCOSE 74 mg/dL (74-106); UREA NITROGEN 17 mg/dL (7-18); eGFR NON AFRICAN AMERICAN > 90 mL/min (90-120)
--- NOTE | 2018-08-24 05:19 | NUR ---
PT WITH EYES CLOSED AND CHEST RISING. NO S/S OF DISTRESS. CALL LIGHT IN REACH. WILL CONTINUE TO OBSERVE.
--- NOTE | 2018-08-24 07:00 | NUR ---
REPORT RECEIVED FROM THE OFF GOING RN. SEE ASSESSMENT IN THE PTS FLOW SHEET. STATED HE HAD A BM THIS AM THAT WAS NORMAL AND NO BLOOD NOTED. PT DENIES PAIN. NO NEEDS AT THIS TIME. PT NOTED TO HAVE EXPITORY WHEEZING. PT STATS THAT HE HAS COPD AND TAKES BREATHING TREATMENTS AT HIS HOUSE. ENOUCRAGE TCDB QH. PT DENIES SOB AT THIS TIME. CALL LIGHT IN REACH. WILL CONT POC.
--- NOTE | 2018-08-24 08:31 | NUR ---
DR CLINE PAGED ABOUT THE PTS CONSULT. ORDERS PUT IN BY DR CLINE FOR EGD. HOLD AM PO MEDS UNTIL AFTER THE PROCEDURE.
[2018-08-24 08:42] LABS: APTT 33.7 SECONDS (22.8-39.4); INR 1.1 (0.85-1.17); PROTIME 13.7 SECONDS (11.6-15.0)
[2018-08-24 08:43] LABS: D-DIMER-QUANTITATIVE 0.76 ug/mLFEU (0.20-0.54)
[2018-08-24 08:51] LABS: PHENOBARBITAL 23.9 ug/mL (15.0-40.0); PHENYTOIN (DILANTIN) 4.4 ug/mL (10.0-20.0)
--- NOTE | 2018-08-24 08:51 | NUR ---
CONSENTS FOR EGD AND ANESTESIA SIGNED BY THE PT. GI LAB TEAM CAME AND GOT THE PT WITH THE CHART. PT LEFT IN A STABLE CONDITION.
--- NOTE | 2018-08-24 09:30 | NUR ---
PT ARRIVED BACK IN THE UNIT AND HOOKED BACK TO ICU MONITORS. VSS. NO S/SX OF DISTRESS/DISCOMFORT NOTED. CALL LIGHT IN REACH. WILL CONT POC.
--- NOTE | 2018-08-24 10:38 | NUR ---
SPOKE WITH DR AYON. UPDATED ON WHAT THEY DID IN THE GI LAB. DR CLINE OK'D TO TRANSFER TO THE FLOOR. DR AYON ALSO OK TO TRANSFER TO THE FLOOR.
--- NOTE | 2018-08-24 16:43 | MORECARE ---
CASE MANAGEMENT DISCHARGE SUMMARY PATIENT: EVELIA SONI CLARITA UNIT: [id number] ADM DATE: 08/23/18 AGE: 58 : 60 SEX: M ROOM/BED: [facility] AUTHOR: HERBIE LANGLEY PHYSICIAN: REFERRING PHYSICIAN: JIM AYON MD DATE OF SERVICE: 08/24/18 Discharge Plan Patient Name: EVELIA SONI [facility] [facility] 1960 Planned Disposition: Home Anticipated Discharge Date: Discharge Date: Expected LOS: Initial Reviewer: [email or web address] Initial Review Date: 08/23/2018 Generated: 08/24/18 5:42 pm DCPIA - Discharge Planning Initial Assessment Updated by [email or web address]: Sonja Caro on 08/24/18 4:42 pm * Is the patient Alert and Oriented? Yes * How many steps to enter\exit or inside your home? * PCP BETI * [facility] * Preadmission Environment Home Alone * ADLs Independent * Equipment Nebulizer * List name and contact numbers for known caregivers / representatives who currently or will assist patient after discharge: MICA SONI [facility]- [phone] * Verbal permission to speak to the caregivers and representatives has been obtained from the patient. N/A * Community resources currently utilized None * Additional services required to return to the preadmission environment? No * Can the patient safely return to the preadmission environment? Yes * Has this patient been hospitalized within the prior 30 days at any hospital? No Patient Name: EVELIA SONI Page [id number] at 1643 All edits/amendments must be made on the electronic document DICTATION DATE: 08/24/181641 SOLUTIONS OPERATOR: SANG 08/24/181641 RPT#: [id number] DC DATE: STATUS: ADM IN [facility] [address] [place] [address] END OF REPORT
--- NOTE | 2018-08-24 16:54 | MORECARE ---
CASE MANAGEMENT DISCHARGE SUMMARY PATIENT: EVELIA SONI UNIT: [id number] ADM DATE: 08/23/18 AGE: 58 : 60 SEX: M [facility] AUTHOR: KORIN,DOC PHYSICIAN: REFERRING PHYSICIAN: JIM AYON MD DATE OF SERVICE: 08/24/18 Discharge Plan Patient Name: EVELIA SONI Facility: [facility]:[place] : 1960 Planned Disposition: Home Anticipated Discharge Date: Discharge Date: Expected LOS: Initial Reviewer: [email or web address] Initial Review Date: 08/23/2018 Generated: 08/24/18 5:54 pm Comments DCP- Discharge Planning Updated by [email or web address]: Sonja Caro on 08/24/18 3:[address] Patient Name: EVELIA SONI Admission Status: ER Accout number: [id number] Admission Date: 08-23-2018 : 1960 Admission Diagnosis: Attending: JIM AYON Current LOS: 1 Anticipated DC Date: Planned Disposition: Home Primary Insurance: [facility] MEDICARE SOLUTIONS Discharge Planning Comments: CM met with patient at bedside after explaining CM role and obtaining verbal consent. Patient lives at home alone and plans to return there upon discharge. Patient feels this would be a safe discharge. CM discussed availability / needs of home health and medical equipment. Patient denies any discharge needs at this time. Patient states he has a nebulizer at home. Patient states he will have his family drive him home upon discharge. CM will continue to follow and assist as needed with discharge planning / needs. Roofer: Sonja Caro DCPIA - Discharge Planning Initial Assessment Updated by [email or web address]: Sonja Caro on 08/24/18 4:42 pm * Is the patient Alert and Oriented? Yes * How many steps to enter\exit or inside your home? * PCP BETI * [facility] * Preadmission Environment Home Alone * ADLs Independent * Equipment Nebulizer * List name and contact numbers for known caregivers / representatives who currently or will assist patient after discharge: MICA SONI - BROTHER- [phone] * Verbal permission to speak to the caregivers and representatives has been obtained from the patient. N/A * Community resources currently utilized None * Additional services required to return to the preadmission environment? No * Can the patient safely return to the preadmission environment? Yes * Has this patient been hospitalized within the prior 30 days at any hospital? No Last DP export: 08/24/18 3:42 p Patient Name: EVELIA SONI Page 32597 at 1654 All edits/amendments must be made on the electronic document DICTATION DATE: 08/24/181653 UNIVERSITY DEMONSTRATOR: SANG 08/24/181653 RPT#: [id number] DC DATE: STATUS: ADM IN [facility] [address] [place] [address] END OF REPORT
--- NOTE | 2018-08-24 17:57 | NUR ---
REPORT GIVEN TO NICKY FIELDS IN MED 3. PT BELONINGS ACCOUTNED FOR. PT TRANSFERED IN A STABLE CONDITION.
--- NOTE | 2018-08-24 20:05 | NUR ---
PATIENT RESTING IN BED AND REQUESTED A SNACK AND DRINK WITH HIS NIGHT MEDS. PATIENT DENIES OTHER NEEDS AT THIS TIME. BED IN LOWEST POSITION AND CALL LIGHT WITHIN REACH. ENCOURAGED THE PATIENT TO CALL IF HE HAS OTHER NEEDS. WILL CONTINUE TO MONITOR.
[2018-08-25 00:54] VITALS: BP 129/85
[2018-08-25 05:25] VITALS: BP 131/75
[2018-08-25 08:00] VITALS: BP 125/81
[2018-08-25 12:31] VITALS: BP 159/99
--- NOTE | 2018-08-26 13:21 | MORECARE ---
CASE MANAGEMENT DISCHARGE SUMMARY PATIENT: EVELIA SONI UNIT: [id number] ADM DATE: 08/23/18 AGE: 58 : 60 SEX: M ROOM/BED: D.1202 AUTHOR: KORIN,DOC PHYSICIAN: REFERRING PHYSICIAN: JIM AYON MD DATE OF SERVICE: 08/26/18 Discharge Plan Patient Name: EVELIA SONI Facility: [facility]:[place] : 1960 Planned Disposition: Home Anticipated Discharge Date: Discharge Date: 08/25/2018 Expected LOS: Initial Reviewer: [email or web address] Initial Review Date: 08/23/2018 Generated: 08/26/18 2:20 pm Comments DCP- Discharge Planning Updated by [email or web address]: Sonja Caro on 08/24/18 3:[address] Patient Name: EVELIA SONI Admission Status: ER Accout number: [id number] Admission Date: 08-23-2018 : 1960 Admission Diagnosis: Attending: JIM AYON Current LOS: 1 Anticipated DC Date: Planned Disposition: Home Primary Insurance: [facility] MEDICARE SOLUTIONS Discharge Planning Comments: CM met with patient at bedside after explaining CM role and obtaining verbal consent. Patient lives at home alone and plans to return there upon discharge. Patient feels this would be a safe discharge. CM discussed availability / needs of home health and medical equipment. Patient denies any discharge needs at this time. Patient states he has a nebulizer at home. Patient states he will have his family drive him home upon discharge. CM will continue to follow and assist as needed with discharge planning / needs. Metalsmith Helper: Sonja Caro DCPIA - Discharge Planning Initial Assessment Updated by [email or web address]: Sonja Caro on 08/24/18 4:42 pm * Is the patient Alert and Oriented? Yes * How many steps to enter\exit or inside your home? * PCP BETI * [facility] * Preadmission Environment Home Alone * ADLs Independent * Equipment Nebulizer * List name and contact numbers for known caregivers / representatives who currently or will assist patient after discharge: MICA SONI - BROTHER- [phone] * Verbal permission to speak to the caregivers and representatives has been obtained from the patient. N/A * Community resources currently utilized None * Additional services required to return to the preadmission environment? No * Can the patient safely return to the preadmission environment? Yes * Has this patient been hospitalized within the prior 30 days at any hospital? No Last DP export: 08/24/18 3:54 p Patient Name: EVELIA SONI Page 60635 at 1321 All edits/amendments must be made on the electronic document DICTATION DATE: 08/26/18 1320 ECG TECHNICIAN: SANG 08/26/18 1320 RPT#: [id number] DC DATE:08/25/18 STATUS: DIS IN [facility] [address] [place] [address] END OF REPORT
== END 2018-08-25 14:07 | disposition home or self-care (01) | DRG 812 ==
LOC: D.ER 14:16 → D.ICU 18:39 → D.CVICU 18:39 → D.M3 08-24 17:58
PROVIDERS: Family Medicine; Internal Medicine Gastroenterology; ADMIT Internal Medicine Nephrology; ATTEND Internal Medicine Nephrology
PROC: 0DB78ZX Excision of Stomach, Pylorus, Via Natural or Artificial Opening Endoscopic, Diagnostic (ICD-10-PCS; principal; 2018-08-24 09:05)
DX: D50.9 Iron deficiency anemia, unspecified (principal); N17.9 Acute kidney failure, unspecified; J44.1 Chronic obstructive pulmonary disease with (acute) exacerbation; E87.1 Hypo-osmolality and hyponatremia; D68.2 Hereditary deficiency of other clotting factors; F17.213 Nicotine dependence, cigarettes, with withdrawal; I10 Essential (primary) hypertension; E78.5 Hyperlipidemia, unspecified; Z86.718 Personal history of other venous thrombosis and embolism; Z79.01 Long term (current) use of anticoagulants; M32.9 Systemic lupus erythematosus, unspecified; G40.909 Epilepsy, unspecified, not intractable, without status epilepticus; K21.0 Gastro-esophageal reflux disease with esophagitis; K29.70 Gastritis, unspecified, without bleeding

== ENCOUNTER → 2018-12-29 07:52 | Outpatient (CLI) | payer MEDICARE, MEDICAID ==
[2018-08-24 13:07] VITALS: BMI 19.3
[2018-12-29 09:06] LABS: BASOPHILS 0.5 % (0-2); EOSINOPHILS 1.9 % (0-7); HEMATOCRIT 37.4 % (42.0-54.0); HEMOGLOBIN 11.7 g/dL (13.5-17.5); IMMATURE GRANULOCYTES 0.1 % (0-5); LYMPHOCYTES 12.5 % (15-50); MCH 28.5 pg (26.0-34.0); MCHC 31.3 g/dL (31.0-37.0); MONOCYTES 6.9 % (2-11); NEUTROPHILS 78.1 % (40-80); PLATELET COUNT 278 10x3/uL (130-400); RBC 4.11 10x6/uL (4.20-6.10); RDW 19.6 % (11.5-14.5); WBC 7.3 10x3/uL (4.8-10.8)
[2018-12-29 09:17] LABS: % SATURATION 53 % (15-55); IRON 166 ug/dl (35-150); TOTAL IRON BIND CAPACITY 311 ug/dl (260-445); UNSAT IRON BIND CAPACITY 145 ug/dl (150-375)
== END | disposition home or self-care (01) ==
LOC: D.RAD 07:52
PROVIDERS: ATTEND Internal Medicine Gastroenterology
DX: D64.9 Anemia, unspecified (principal); R10.9 Unspecified abdominal pain; R63.4 Abnormal weight loss

== ENCOUNTER → 2019-05-25 10:19 | Outpatient (CLI) | payer MEDICARE, MEDICAID ==
[2018-08-24 13:07] VITALS: BMI 19.3
== END | disposition home or self-care (01) ==
LOC: D.RT 10:00
PROVIDERS: ATTEND Internal Medicine Pulmonary Disease
DX: J44.9 Chronic obstructive pulmonary disease, unspecified (principal)

== ENCOUNTER 2019-12-06 09:41 | Day surgery (SDC) | payer MEDICARE, OTHER ==
[~2019-12-06] VITALS: Ht 175.3 cm; Wt 64.5 kg
[2019-12-06 10:17] LABS: CALC OSMOLALITY 272 mosm/kg (275-300); CALCIUM 9.3 mg/dL (8.5-10.1); CARBON DIOXIDE 24.9 mmol/L (21.0-32.0); CHLORIDE - SERUM 100 mmol/L (98-107); GLUCOSE 90 mg/dL (74-106); INR 0.92 (0.85-1.17); POTASSIUM - SERUM 3.9 mmol/L (3.5-5.1); PROTIME 12.3 SECONDS (11.6-15.0); SODIUM 136 mmol/L (136-145); UREA NITROGEN 15 mg/dL (7-18); eGFR NON AFRICAN AMERICAN 81 mL/min (90-120)
[2019-12-06 10:18] LABS: APTT 42.1 SECONDS (22.8-39.4)
[2019-12-06 10:29] LABS: HEMATOCRIT 41.9 % (42.0-54.0); HEMOGLOBIN 14.2 g/dL (13.5-17.5); MCH 32.7 pg (26.0-34.0); MCHC 33.9 g/dL (31.0-37.0); MCV 96.5 fL (80.0-100.0); MEAN PLATELET VOLUME 9.2 fL (7.4-10.4); RBC 4.34 10x6/uL (4.20-6.10); RDW 13.4 % (11.5-14.5); WBC 5.7 10x3/uL (4.8-10.8)
[2019-12-06 10:38] VITALS: BP 137/83; Ht 175.3 cm; Wt 64.5 kg
--- NOTE | 2019-12-06 12:11 | NUR ---
1205-RECD TO ROOM FROM GI LAB. DR MERRITT IN TO REPORT FINDINGS. ALERT. IV PATENT. RESP WITH EASE. 1210-TOLERATES LIQUIDS (FULL LIQUIDS) WITHOUT NAUSEA.
--- NOTE | 2019-12-06 12:35 | NUR ---
1230 IV DC'D. CATHETER TIP INTACT. NO BLEEDING AT SITE. LAURA APPLIED. REVIEWED DISCHARGE INSTRUCTIONS WITH PT AND HIS BROTHER WHO BOTH VOICE UNDERSTANDING OF INSTRUCTIONS.
--- NOTE | 2019-12-08 17:32 | OP ---
PATIENT NAME: EVELIA SONI MEDICAL RECORD: [id number] :60 LOCATION:[facility] ADMISSION DATE: SURGEON: MILEY MERRITT DO DATE OF OPERATION: 12/06/2019 PROCEDURE: Colonoscopy with polypectomy. INDICATIONS FOR PROCEDURE: History of colon polyps, family history of colon cancer in the patient's father and 2 brothers, positive stool guaiac, anemia. SCOPE: Olympus video pediatric colonoscope. MEDICATIONS: Propofol 500 mg IV per anesthesia. WITHDRAWAL TIME: 33 minutes. ESTIMATED BLOOD LOSS: Minimal. COMPLICATIONS: None. FINDINGS: Informed consent was given. The patient was made comfortable with the above medication. After reaching an adequate level of sedation by slow IV push, the patient was placed on his left side. A digital rectal examination was performed and was normal. The endoscope was then advanced under direct visualization through the rectum to the cecum and terminal ileum. The endoscope was slowly withdrawn and mucosa was carefully examined. The prep quality was good. In the terminal ileum, there appeared to be some granularity and some villous blunting. Cold forcep biopsies were taken to submit for histopathology. There were multiple polyps. Two were located in the cecum. They were benign-appearing and sessile and ranged in size from 3-5 mm in diameter. They were removed using hot snare. In the ascending colon, there were four separate polyps. Three of these were smaller and sessile and benign-appearing. They ranged in size from 3-6 mm in diameter. They were removed using hot snare. There was a single larger polyp in the base of a fold near the hepatic flexure that measured approximately 1 cm in size. It was removed using endoscopic mucosal resection technique with a saline pillow injection followed by hot snare polypectomy. In the sigmoid colon, there was a benign appearing sessile polyp, which measured approximately 3 mm in diameter. It was removed using hot forceps. Retroflexion was performed in the rectum with visualization of grade I internal hemorrhoids without bleeding. There were a few scattered nonbleeding angioectasias present in the colon. In the ascending colon, one was cauterized and ablated. There was another in the cecum, which was not cauterized on today's examination due to risk of perforation in this area. It did not have any evidence of recent bleeding and it was not currently bleeding. The endoscope was withdrawn from the patient. The patient tolerated the procedure well and there were no complications. IMPRESSION: 1. Multiple polyps as described above, removed using a combination of EMR technique, hot snare, and hot forceps. 2. Granular and villous blunting appearance in the terminal ileum, status post biopsies with cold forceps. 3. Grade I internal hemorrhoids without bleeding. PLAN AND RECOMMENDATIONS: OPERATIVE REPORT [id number] EVELIA SONI 1. Discharge home when recovery parameters are met. 2. Follow up biopsy specimen results. 3. High fiber diet. 4. Continue current medications. 5. Recall colonoscopy within 3 years. TRANSINT:[id number] Voice Confirmation ID: [id number] DOCUMENT ID: [id number] MILEY MERRITT DO at 1732 CC: [id number] DICTATION DATE: 12/06/19 1154 CONTENT SPECIALIST: 12/06/192033 [facility] 12/06/19 [id number] [place] [address]
== END 2019-12-06 12:41 | disposition home or self-care (01) ==
LOC: D.OPS 09:41
PROVIDERS: Anesthesiology; ATTEND Internal Medicine Gastroenterology
DX: D64.9 Anemia, unspecified (principal); R19.5 Other fecal abnormalities; Z86.010 Personal history of colon polyps; Z80.0 Family history of malignant neoplasm of digestive organs; K63.5 Polyp of colon; K64.0 First degree hemorrhoids; J44.9 Chronic obstructive pulmonary disease, unspecified; M32.9 Systemic lupus erythematosus, unspecified; K21.9 Gastro-esophageal reflux disease without esophagitis

== ENCOUNTER 2020-05-11 11:23 | Emergency (ER) | payer MEDICARE, OTHER ==
[2020-05-11 11:28] VITALS: Ht 175.3 cm
[2020-05-11] MEDS ORDERED: ULTRAM50 MG PO (12:49)
[2020-05-11 14:07] VITALS: BP 142/82
== END 2020-05-11 14:21 | disposition home or self-care (01) ==
LOC: D.ER 11:23
DX: S42.002A Fracture of unspecified part of left clavicle, initial encounter for closed fracture (principal); I10 Essential (primary) hypertension; J44.9 Chronic obstructive pulmonary disease, unspecified; Z72.0 Tobacco use; M54.2 Cervicalgia; M25.512 Pain in left shoulder; V89.2XXA Person injured in unspecified motor-vehicle accident, traffic, initial encounter; Y93.9 Activity, unspecified; Y92.9 Unspecified place or not applicable

== ENCOUNTER 2020-05-20 10:33 | Inpatient (IN) | payer MEDICARE, OTHER ==
[~2020-05-20] VITALS: Ht 175.3 cm; Wt 45.4 kg
[~2020-05-20 10:33] MED LIST changes: +ULTRAM50 MG PO
[2020-05-20 11:15] LABS: APTT 37.6 SECONDS (22.8-39.4); INR 1.3 (0.85-1.17)
[2020-05-20 11:17] LABS: CALC OSMOLALITY 268 mosm/kg (275-300); CALCIUM 9.2 mg/dL (8.5-10.1); CARBON DIOXIDE 23.6 mmol/L (21.0-32.0); CHLORIDE - SERUM 96 mmol/L (98-107); CREATININE - SERUM 0.9 mg/dL (0.6-1.3); GLUCOSE 104 mg/dL (74-106); POTASSIUM - SERUM 3.6 mmol/L (3.5-5.1); SODIUM 132 mmol/L (136-145); UREA NITROGEN 23 mg/dL (7-18); eGFR NON AFRICAN AMERICAN > 90 mL/min (90-120)
[2020-05-20 11:29] LABS: BASOPHILS 0.1 % (0-2); EOSINOPHILS 0.1 % (0-7); HEMATOCRIT 30.5 % (42.0-54.0); HEMOGLOBIN 9.7 g/dL (13.5-17.5); IMMATURE GRANULOCYTES 0.7 % (0-5); LYMPHOCYTE ABS# 1.31 10x3/uL (1.32-3.57); LYMPHOCYTES 8.7 % (15-50); MCHC 31.8 g/dL (31.0-37.0); MCV 88.2 fL (80.0-100.0); MONOCYTES 9.3 % (2-11); NEUTROPHIL ABS# 12.21 10x3/uL (1.78-5.38); NEUTROPHILS 81.1 % (40-80); RBC 3.46 10x6/uL (4.20-6.10); RDW 14.6 % (11.5-14.5)
[2020-05-20 11:30] LABS: PLATELET COUNT 395 10x3/uL (130-400)
[2020-05-20 11:33] LABS: ALKALINE PHOSPHATASE 246 U/L (30-120); ALT (SGPT) 39 U/L (10-68); BILIRUBIN - TOTAL 0.63 mg/dL (0.2-1.3); CREATINE KINASE 16 UL (21-232); MAGNESIUM - SERUM 2.1 mg/dL (1.8-2.4); PROTEIN - SERUM 7.2 g/dL (6.4-8.2); THYROID STIMULATING HORMONE 1.99 uIU/mL (0.36-3.74)
[2020-05-20 11:34] LABS: TROPONIN-I < 0.017 ng/mL (0.000-0.060)
[2020-05-20 12:10] LABS: SARS-CoV-2 ANTIGEN NEGATIVE- SARS-COV-2 (NEGATIVE)
--- NOTE | 2020-05-20 13:47 | NUR ---
RECEIVED PT TO ROOM 2135 VIA STRETCHER, PT WAS ABLE TO TRANSFER FROM STRETCHER TO BED X1 ASSIST. NS BOLUS AND ZITHROMAX INFUSING TO LT FA IV. PT A/O X4, RESP EVEN BUT LABORED ON 2L. ENCOURAGED PT TO TAKE IN DEEP BREATHS. ORIENTED PT TO ROOM AND CALL LIGHT, ALSO PROVIDED PT WITH URINAL. PT DENIES ANY NEEDS AT THIS TIME. CALL LIGHT IN REACH, WILL START PLAN OF CARE.
[2020-05-20 13:56] VITALS: BMI 14.8
--- NOTE | 2020-05-20 16:30 | NUR ---
BLOOD SUGAR OF 127, NO COVERAGED NEEDED PERS/S. PT DENIES ANY NEEDS AT THIS TIME. CALL LIGHT IN REACH.
[2020-05-20 17:05] VITALS: BP 127/87
[2020-05-20 22:19] VITALS: BP 149/91
--- NOTE | 2020-05-20 22:37 | NUR ---
PT SITTING UP IN BED. PT AAOX4. BS 173 TREATED WITH SLIDING SCALE ORDERS. PT HAS BNC IN PLACE AT 2L. IV INTACT AND SALINE LOCKED. PT DENIES PAIN AT THIS TIME. ST ON MONITOR AT 103BPM. PT GIVEN ICE WATER, DENIES ANY OTHER NEEDS AT THIS TIME.
[2020-05-21 00:30] VITALS: BP 141/75
[2020-05-21 04:30] VITALS: BP 138/72
[2020-05-21 07:48] LABS: BASOPHILS 0 % (0-2); EOSINOPHILS 0.1 % (0-7); HEMOGLOBIN 9.1 g/dL (13.5-17.5); IMMATURE GRANULOCYTES 0.8 % (0-5); LYMPHOCYTE ABS# 0.54 10x3/uL (1.32-3.57); LYMPHOCYTES 4.3 % (15-50); MCH 27.8 pg (26.0-34.0); MCHC 31.4 g/dL (31.0-37.0); MCV 88.7 fL (80.0-100.0); MONOCYTES 14.9 % (2-11); NEUTROPHIL ABS# 10.06 10x3/uL (1.78-5.38); NEUTROPHILS 79.9 % (40-80); PLATELET COUNT 382 10x3/uL (130-400); RBC 3.27 10x6/uL (4.20-6.10); RDW 14.8 % (11.5-14.5); WBC 12.6 10x3/uL (4.8-10.8)
[2020-05-21 08:01] LABS: ALBUMIN 1.7 g/dL (3.4-5.0); ALKALINE PHOSPHATASE 308 U/L (30-120); ALT (SGPT) 32 U/L (10-68); BILIRUBIN - TOTAL 0.36 mg/dL (0.2-1.3); CALCIUM 8.4 mg/dL (8.5-10.1); CARBON DIOXIDE 24.9 mmol/L (21.0-32.0); CHLORIDE - SERUM 100 mmol/L (98-107); CREATININE - SERUM 0.7 mg/dL (0.6-1.3); GLUCOSE 104 mg/dL (74-106); MAGNESIUM - SERUM 1.9 mg/dL (1.8-2.4); POTASSIUM - SERUM 3.2 mmol/L (3.5-5.1); PROTEIN - SERUM 6.6 g/dL (6.4-8.2); SODIUM 133 mmol/L (136-145); eGFR NON AFRICAN AMERICAN > 90 mL/min (90-120)
[2020-05-21 08:03] LABS: CALC OSMOLALITY 266 mosm/kg (275-300); UREA NITROGEN 16 mg/dL (7-18)
--- NOTE | 2020-05-21 08:13 | NUR ---
AM MEDS GIVEN AT THIS TIME. PT A/O X4, RESP EVEN AND NONLABORED ON RA. LT FA IV SL. PT DENIES ANY NEEDS AT THIS TIME. CALL LIGHT IN REACH, WILL CONTINUE PLAN OF CARE.
--- NOTE | 2020-05-21 09:19 | NUR ---
INTERVENTIONAL RADIOLOGIST DR HAJI MADE AWARE OF BIOPSY OF LUNG MASS CONSULT ORDERED BY DR CARRANZA ON 05/21 AT 0920.
--- NOTE | 2020-05-21 11:42 | NUR ---
BLOOD SUGAR OF 213, 4UNITS GIVEN PER S/S. PT SITTING ON SIDE OF BED, DENIES ANY NEEDS AT THIS TIME, CALL LIGHT IN REACH.
[2020-05-21 12:49] VITALS: BP 119/77
--- NOTE | 2020-05-21 16:35 | NUR ---
BLOOD SUGAR OF 111, NO COVERAGED PER S/S. URINE SAMPLE COLLECTED AND TAKEN TO LAB. PT DENIES ANY NEEDS AT THIS TIME. CALL LIGHT IN REACH.
[2020-05-21 16:57] LABS: BILIRUBIN NEGATIVE (NEGATIVE); KETONE NEGATIVE (NEGATIVE); NITRITE NEGATIVE (NEGATIVE); UROBILINOGEN NORMAL mg/dL (< 2)
[2020-05-21 20:00] VITALS: BP 135/84
--- NOTE | 2020-05-21 20:06 | NUR ---
Assumed care of pt after report/rounds. Pt is A&OX4 and verbalizes wants/needs clearly, appropriately and without difficulty or hesitation. Denies pain/discomfort. Tele in place and functioning appropriately. Pt is still eating supper at this time while sitting up in bed.
--- NOTE | 2020-05-21 23:50 | NUR ---
Pt's son in law Paige called and stated pt not making sense. Nurse went to check pt and he was without Oxygen SAT at 88% on RA. Nurse assisted pt to put O2 back on and call family from room with nurse present. Pt did become more lucid and back to baseline. Pt teaching regarding O2 need and SOB without. Pt verbalized understanding and continued to chat with daughter.
[2020-05-22] VITALS: BP 130/71
[2020-05-22 04:00] VITALS: BP 142/79
[2020-05-22 06:19] LABS: ALBUMIN 1.8 g/dL (3.4-5.0); ALKALINE PHOSPHATASE 266 U/L (30-120); ALT (SGPT) 33 U/L (10-68); BILIRUBIN - TOTAL 0.24 mg/dL (0.2-1.3); CALC OSMOLALITY 264 mosm/kg (275-300); CALCIUM 8.5 mg/dL (8.5-10.1); CHLORIDE - SERUM 97 mmol/L (98-107); CREATININE - SERUM 0.7 mg/dL (0.6-1.3); GLUCOSE 96 mg/dL (74-106); PROTEIN - SERUM 6.6 g/dL (6.4-8.2); SODIUM 132 mmol/L (136-145); UREA NITROGEN 12 mg/dL (7-18); eGFR NON AFRICAN AMERICAN > 90 mL/min (90-120)
[2020-05-22 06:22] LABS: POTASSIUM - SERUM 2.8 mmol/L (3.5-5.1)
[2020-05-22 06:34] LABS: BASOPHILS 0.1 % (0-2); EOSINOPHILS 0.2 % (0-7); HEMOGLOBIN 8.5 g/dL (13.5-17.5); IMMATURE GRANULOCYTES 0.8 % (0-5); LYMPHOCYTES 6.1 % (15-50); MCH 27.8 pg (26.0-34.0); MCHC 31.5 g/dL (31.0-37.0); MCV 88.2 fL (80.0-100.0); MEAN PLATELET VOLUME 9.4 fL (7.4-10.4); MONOCYTES 14.2 % (2-11); NEUTROPHIL ABS# 10.27 10x3/uL (1.78-5.38); NEUTROPHILS 78.6 % (40-80); PLATELET COUNT 410 10x3/uL (130-400); RBC 3.06 10x6/uL (4.20-6.10); RDW 14.9 % (11.5-14.5); WBC 13.1 10x3/uL (4.8-10.8)
--- NOTE | 2020-05-22 09:00 | NUR ---
PATIENT REFUSED TO TAKE MORNING MEDICATION, STATED HE WAS NOT IN THE HOSPITAL. REORIENTED TO PLACE AND TIME. BECAME ANGRY AND STILL WOULD NOT TAKE MEDS. I CALLED HIS BROTHER WHO SPOKE WITH HIM ON THE PHONE AND HE COULDN'T CONVINCE HIM TO TAKE THIM. PATIENT HAS A CRITICAL POTASSIUM OF 2.8. ALL OF THIS WAS EXPLAINED TO FAMILY. NOTIFIED MD OF ABOVE.
--- NOTE | 2020-05-22 10:00 | NUR ---
PATIENT FOUND IN HALLWAY AND TAKEN BACK TO ROOM AND REORIENTED TO STAY IN ROOM.
[2020-05-22 10:06] LABS: INR 1.25 (0.85-1.17); PROTIME 14.5 SECONDS (11.6-15.0)
--- NOTE | 2020-05-22 11:27 | NUR ---
STARTED ANTIBIOTIC THERAPY AND ABOUT 15 MINUTES LATER I HEARD IB BEAPING SO I WENT TO PATIENTS ROOM AND HE HAD PULLED IV OUT OF ARM AND BLOOD WS ALL OVER THE FLOOR AND THE PATIENTS ARM. ARM CLEANED, DRESSING APPLIED AND FLOOR CLEANED. NOTIFIED.
--- NOTE | 2020-05-22 12:00 | NUR ---
SPOKE WITH MARYJANE ABOUT PATIENT REFUSING ALL MEDICATIONS, LEAVING ROOM AND ROAMING HALLWAYS, AGITATION AND PULLING IV OUT WHILE ANTIBIOTIC THERAPY WAS INFUSING, SHE IS AWARE THAT HE IS WITHOUT AN IV AND IS OK WITH NOT STARTING ANOTHER THIS IS THE 2ND ONE HE HAS PULLED OUT AND WILL CONTINUE TO PULL OUT EVERY ONE WE PUT IN. WILL ATTEMPT IF PATIENT STATUS CHANGES.
[2020-05-22 12:20] VITALS: BP 133/85
[2020-05-22 14:15] VITALS: Ht 175.3 cm; Wt 45.4 kg
[2020-05-22 16:57] VITALS: BP 145/85
[2020-05-22 20:00] VITALS: BP 153/92
--- NOTE | 2020-05-22 21:28 | NUR ---
REPORT RECEIVED, WILL CONT POC. PT ALERT AND VERY CONFUSED. CONTINUES TO WANDER THE HALLS AND INTO PTS ROOMS WHEN THIS NURSE IS ATTENDING OTHER PTS. ORDERS RECEIVED FROM MUNIRA TATE APN TO GIVE 2.5 MG IM OF HALDOL. IF PT CONTINUES TO WANDER AFTER AN HOUR POST IM INJECTION, CANDLEMAKING LABORER ORDERED TO GIVE ANOTHER IM INJ OF HALDOL 2.[address] PT IN KRISTI BED TO ENSURE SAFETY OF PT AND OTHERS. THIS NURSE ADMINISTERED 2.5 MG OF HALDOL. PT IS RESTING IN BED. VIDEO MONITOR ON PT. PT ALSO CONT TO REMOVE TELEMETRY AND THROW IT IN THE TRASH. THIS NURSE AND PROGRAM SUPPORT CLERK REAPPLIES TELEMETRY BUT PT CONT TO REMOVE IT. EDCUATED THE PT ON THE IMPORTANCE OF HIS TELEMETRY, BUT PT IS TOO CONFUSED TO UNDERSTAND. NOTIFIED MUNIRA TATE APN THAT PT DOES NOT HAVE AN IV AND REFUSES TO LET THIS NURSE OR ANY OTHER NURSE SITE AN IV. MUNIRA TATE APN INSISTED WE ATTEMPT AND IV AFTER PT HAS SETTLED DOWN POST HALDOL INJ. THIS NURES WILL ATTEMPT TO RESITE PTS IV WHEN PT IS SETTLED DUE TO ORDERS FOR ATBS. NO S/S OF DISTRESS OBSERVED. RR EVEN AND UNLABORED ON RA, THOUGH PT IS ORDERED 2L NC, PT REFUSES TO KEEP IT ON. PTS O2 SAT IS 95% PT STATES THAT HE IS NOT IN THE HOSPITAL AND HE IS READY TO GO HOME. BED LOCKED AND LOWERED, CL IN REACH. ASSESSMENT COMPLETED AT THIS TIME. WILL CONT TO MONITOR.
--- NOTE | 2020-05-22 22:55 | NUR ---
PT CONT TO GET OUT OF BED AND WANDER HALLS AND INTO PTS ROOM. PT IS A PUI. ORDERS FROM MUNIRA TATE APN TO GIVE SECOND DOSE OF HALDOL AND PLACE PT IN KRISTI. PT IS RESTING IN KRISTI BED. EDUCATED PT ON THE USE OF KRISTI BED AND THIS NURSES EFFORTS TO KEEP HIM SAFE. PT IS NOT ORIENTED ENOUGH TO UNDERSTAND. VIDEO MONITOR ON PT. IV RESITED TO Sujatha FA. PT REFUSES TO LET US PLACE TELEMETRY ON HIM. PULLS TELEMETRY OFF AFTER THIS NURSE AND SET ILLUSTRATOR WALK OUT OF THE ROOM. WILL CONT TO MONITOR PT FREQUENTLY.
--- NOTE | 2020-05-22 23:49 | NUR ---
PT CONT STATE OF AGITATION IN KRISTI BED. ATTEMPTED TO REMOVE IV. ADMIN ATIVAN PER ORDERS.
--- NOTE | 2020-05-23 03:20 | NUR ---
SERGING MACHINE OPERATOR ATTEMPTED TO TAKE VITALS. PT BEGAN TAKING OFF BP CUFF AND REFUSING TO LET SERGING MACHINE OPERATOR CHECK HIS VITALS.
--- NOTE | 2020-05-23 06:11 | NUR ---
PT REFUSES I/S AND SCDS.
[2020-05-23 06:41] LABS: BASOPHILS 0.1 % (0-2); EOSINOPHILS 0.3 % (0-7); HEMATOCRIT 28.5 % (42.0-54.0); HEMOGLOBIN 8.9 g/dL (13.5-17.5); IMMATURE GRANULOCYTES 0.7 % (0-5); LYMPHOCYTE ABS# 0.72 10x3/uL (1.32-3.57); MCH 27.6 pg (26.0-34.0); MCHC 31.2 g/dL (31.0-37.0); MCV 88.5 fL (80.0-100.0); MEAN PLATELET VOLUME 9.1 fL (7.4-10.4); MONOCYTES 11.8 % (2-11); NEUTROPHIL ABS# 9.66 10x3/uL (1.78-5.38); NEUTROPHILS 81.1 % (40-80); PLATELET COUNT 393 10x3/uL (130-400); RBC 3.22 10x6/uL (4.20-6.10); RDW 14.7 % (11.5-14.5); WBC 11.9 10x3/uL (4.8-10.8)
[2020-05-23 06:45] LABS: ALKALINE PHOSPHATASE 242 U/L (30-120); ALT (SGPT) 41 U/L (10-68); BILIRUBIN - TOTAL 0.25 mg/dL (0.2-1.3); CALC OSMOLALITY 268 mosm/kg (275-300); CALCIUM 8.5 mg/dL (8.5-10.1); CARBON DIOXIDE 27.4 mmol/L (21.0-32.0); CHLORIDE - SERUM 99 mmol/L (98-107); CREATININE - SERUM 0.7 mg/dL (0.6-1.3); GLUCOSE 101 mg/dL (74-106); PROTEIN - SERUM 6.2 g/dL (6.4-8.2); SODIUM 135 mmol/L (136-145); UREA NITROGEN 10 mg/dL (7-18); eGFR NON AFRICAN AMERICAN > 90 mL/min (90-120)
[2020-05-23 07:07] LABS: POTASSIUM - SERUM 2.9 mmol/L (3.5-5.1)
--- NOTE | 2020-05-23 08:00 | NUR ---
NURSE TRIES TO GIVE PATIENT PO MEDS THIS AM, HE IS CONVINCED WE ARE GIVING HIM CANDY . STARTS CHEWING MEDS UP AND SPITTING THEM AT NURSE. CUSSING. SAYS HE IS NOT TAKING MEDS. PATIENT HAS LEFT IV ALONE THIS FAR. NURSE OFFERS TO TAKE PT TO RESTROOM SO HE CAN URINATE OR HAVE A BM. PATIENT REFUSES. NAD NOTED. CALL LIGHT IN REACH
[2020-05-23 09:38] VITALS: BP 181/71
--- NOTE | 2020-05-23 12:07 | NUR ---
NURSE TRIES CALLING PT'S FAMILY BACK WITH NO ANSWER.
--- NOTE | 2020-05-23 13:30 | NUR ---
NURSE CALLS IR TO ASK WHEN PT WILL BE HAVING BIOPSY , NURSE STATES THAT PATIENT WILL NOT BEING HAVING PROCEDURE UNTIL HIS COVID COMES BACK. NURSE ORDERS REGULAR DIET.
--- NOTE | 2020-05-23 14:14 | NUR ---
NURSE IN ROOM Q2 TO MONITOR KRISTI BED. OFFER BATHROOM BREAKS AND TO SEE IF PATIENT NEEDS ANYTHING
[2020-05-23 20:00] VITALS: BP 160/89
--- NOTE | 2020-05-23 20:20 | NUR ---
REPORT RECEIVED, WILL CONT POC. PT A&CONFUSED. LAYING IN KRISTI BED PEACEFULLY. NO S/S OF DISTRESS OBSERVED. RR EVEN AND UNLABORED ON RA. BED LOCKED AND LOWERED, CL IN REACH. ASSESSMENT COMPLETED AT THIS TIME. WILL CONT TO MONITOR.
--- NOTE | 2020-05-23 22:08 | NUR ---
PT REFUSED 2100 MEDS AND BLOOD SUGAR CHECK. INSISTED AND EDUCATED PT ON THE IMPORTANCE OF MEDS AND FINGER STICK. PT CONT TO REFUSE AND STATED TO THIS NURSE, "I DON'T WANT THEM. I'M NOT TAKING THEM." WILL CONT TO MONITOR PT.
[2020-05-24] VITALS: BP 157/97
--- NOTE | 2020-05-24 02:45 | NUR ---
PTS TEMP 100.3. ORDERS FROM MUNIRA TATE APN TO GIVE 650 MG TYLENOL.
[2020-05-24 04:00] VITALS: BP 169/95
--- NOTE | 2020-05-24 04:00 | NUR ---
PTS TEMP 98.9. WILL CONT TO MONITOR.
--- NOTE | 2020-05-24 05:38 | NUR ---
PT EMERGENCY CONTACTS: TANIA SONI [phone] MICA SONI [phone] ADA (SON IN LAW) [phone]
[2020-05-24 07:30] LABS: ALKALINE PHOSPHATASE 227 U/L (30-120); ALT (SGPT) 44 U/L (10-68); BILIRUBIN - TOTAL 0.47 mg/dL (0.2-1.3); CALC OSMOLALITY 269 mosm/kg (275-300); CALCIUM 9.3 mg/dL (8.5-10.1); CARBON DIOXIDE 23.6 mmol/L (21.0-32.0); CHLORIDE - SERUM 98 mmol/L (98-107); CREATININE - SERUM 0.6 mg/dL (0.6-1.3); GLUCOSE 63 mg/dL (74-106); MAGNESIUM - SERUM 1.9 mg/dL (1.8-2.4); PHENOBARBITAL 24.3 ug/mL (15.0-40.0); PROTEIN - SERUM 7.1 g/dL (6.4-8.2); SODIUM 136 mmol/L (136-145); UREA NITROGEN 12 mg/dL (7-18); eGFR NON AFRICAN AMERICAN > 90 mL/min (90-120)
[2020-05-24 07:31] LABS: BASOPHILS 0.1 % (0-2); EOSINOPHILS 0.3 % (0-7); HEMATOCRIT 31.6 % (42.0-54.0); HEMOGLOBIN 9.9 g/dL (13.5-17.5); IMMATURE GRANULOCYTES 0.5 % (0-5); LYMPHOCYTE ABS# 0.77 10x3/uL (1.32-3.57); LYMPHOCYTES 6.7 % (15-50); MCH 28.1 pg (26.0-34.0); MCHC 31.3 g/dL (31.0-37.0); MCV 89.8 fL (80.0-100.0); MONOCYTES 11.5 % (2-11); NEUTROPHIL ABS# 9.31 10x3/uL (1.78-5.38); NEUTROPHILS 80.9 % (40-80); RBC 3.52 10x6/uL (4.20-6.10); WBC 11.5 10x3/uL (4.8-10.8)
[2020-05-24 07:32] LABS: PLATELET COUNT 491 10x3/uL (130-400)
[2020-05-24 07:42] LABS: PHENYTOIN (DILANTIN) < 0.5 ug/mL (10.0-20.0)
[2020-05-24 08:39] VITALS: BP 172/91
--- NOTE | 2020-05-24 09:56 | NUR ---
NURSE WAS ABLE TO GET PT TO EAT A FEW BITES OF HIS BREAKFAST AND TAKE HIS AM PILLS. NURSE SAT IN ROOM FOR ABOUT AN HOUR FEEDING HIM. PATIENT IS CONFUSED THIS AM AND NOT ABLE TO REORIENT. ASSESSMENT COMPLETED. CALL LIGHT IN REACH.
[2020-05-24 12:31] VITALS: BP 127/85
--- NOTE | 2020-05-24 15:20 | NUR ---
NURSE GETS PATIENT UP FOR SHOWER, CLEAN GOWN, LINEN CHANGE. BRUSHED HAIR. PATIENT TOLERATED WELL. NAD NOTED. BACK IN BED.
[2020-05-24 16:01] VITALS: BP 119/86
--- NOTE | 2020-05-24 18:21 | NUR ---
NURSE TALKS WITH PATIENT'S FAMILY ON PHONE AND HELPS PATIENT TALK WITH HIS FAMILY ON PHONE
--- NOTE | 2020-05-24 20:15 | NUR ---
REPORT RECEIVED, WILL CONT POC. PT A&CONFUSED. PTS BROTHER, MICA, IN THE ROOM AT BEDSIDE. BROTHER AGREES TO STAY WITH PT SO THAT PT CAN BE REMOVED FROM KRISTI BED. SPOKE WITH PETRA NEIL, WHO STATED REMOVING PT FROM KRISTI BED WAS FINE LONG PT IS MANAGEABLE BY FAMILY. NO S/S OF DISTRESS OBSERVED. RR EVEN AND UNLABORED ON RA. BED LOCKED AND LOWERED, CL IN REACH. WILL CONT POC.
[2020-05-24 23:22] VITALS: BP 122/88
[2020-05-25] VITALS (12 sets, daily range): BP systolic 96–128; BP diastolic 67–84
[2020-05-25 05:37] LABS: INR 1.27 (0.85-1.17); PROTIME 14.7 SECONDS (11.6-15.0)
[2020-05-25 05:50] LABS: BASOPHILS 0 % (0-2); EOSINOPHILS 0.3 % (0-7); HEMATOCRIT 28.8 % (42.0-54.0); HEMOGLOBIN 9.3 g/dL (13.5-17.5); IMMATURE GRANULOCYTES 0.5 % (0-5); LYMPHOCYTE ABS# 0.81 10x3/uL (1.32-3.57); LYMPHOCYTES 6.9 % (15-50); MCH 28.4 pg (26.0-34.0); MCHC 32.3 g/dL (31.0-37.0); MCV 88.1 fL (80.0-100.0); MONOCYTES 9.8 % (2-11); NEUTROPHIL ABS# 9.61 10x3/uL (1.78-5.38); NEUTROPHILS 82.5 % (40-80); PLATELET COUNT 493 10x3/uL (130-400); RBC 3.27 10x6/uL (4.20-6.10); WBC 11.7 10x3/uL (4.8-10.8)
[2020-05-25 05:55] LABS: ALBUMIN 1.9 g/dL (3.4-5.0); ALKALINE PHOSPHATASE 200 U/L (30-120); BILIRUBIN - TOTAL 0.25 mg/dL (0.2-1.3); CALCIUM 8.9 mg/dL (8.5-10.1); CARBON DIOXIDE 25.5 mmol/L (21.0-32.0); CHLORIDE - SERUM 102 mmol/L (98-107); MAGNESIUM - SERUM 1.9 mg/dL (1.8-2.4); PROTEIN - SERUM 6.7 g/dL (6.4-8.2); SODIUM 139 mmol/L (136-145)
[2020-05-25 06:00] LABS: ALT (SGPT) 32 U/L (10-68); CALC OSMOLALITY 278 mosm/kg (275-300); CREATININE - SERUM 0.8 mg/dL (0.6-1.3); GLUCOSE 99 mg/dL (74-106); UREA NITROGEN 16 mg/dL (7-18); eGFR NON AFRICAN AMERICAN > 90 mL/min (90-120)
--- NOTE | 2020-05-25 07:00 | NUR ---
Lying in bed, awake/alert/confused, t/r self ad miriam, cont of b/b with assist with BRPs ad miriam, denies pain/other discomfort at this time, call light/phone within reach, brother by bedside, no s/s of acute distress observed.
--- NOTE | 2020-05-25 08:30 | NUR ---
off unit for lung biopsy via bed accompanied by hospital staff and family member, no s/s of acute distress observed.
--- NOTE | 2020-05-25 09:40 | NUR ---
Returned to unit, VS 98.6/17/94%/101/ 103/71, no needs voiced at this time.
--- NOTE | 2020-05-25 13:40 | NUR ---
Nutrition Follow-up: NPO this AM for CT guided lung bx. Pt confused. Nursing reports pt ate some dinner last night but unsure of how much. Diet: Regular PO intake: 50-100% (05/21); no other PO intake recorded WT: 100# (05/22)BMI: 14.7 Labs noted: K+ 3.0, Glu 99, Alb 1.9 Meds reviewed -Encourage PO intake and honor food preferences. -+Ensure with meals. -Need new wt. -RD follow-up: 05/29
--- NOTE | 2020-05-25 19:30 | NUR ---
PT IN BED, AAO X 2, RESP EVEN AND UNLABORED, NO DISTRESS NOTED, CL IN REACH, SR UP X 2.
--- NOTE | 2020-05-26 01:09 | NUR ---
I have reviewed this patient and I concur with the Shift Assessment completed by the Licensed Practical Nurse today this shift.
[2020-05-26 05:03] LABS: BASOPHILS 0.1 % (0-2); EOSINOPHILS 0.2 % (0-7); HEMATOCRIT 28.9 % (42.0-54.0); HEMOGLOBIN 8.9 g/dL (13.5-17.5); IMMATURE GRANULOCYTES 0.4 % (0-5); LYMPHOCYTE ABS# 0.87 10x3/uL (1.32-3.57); LYMPHOCYTES 6.1 % (15-50); MCH 27.2 pg (26.0-34.0); MCHC 30.8 g/dL (31.0-37.0); MCV 88.4 fL (80.0-100.0); MEAN PLATELET VOLUME 9.2 fL (7.4-10.4); MONOCYTES 9.1 % (2-11); NEUTROPHIL ABS# 11.98 10x3/uL (1.78-5.38); NEUTROPHILS 84.1 % (40-80); PLATELET COUNT 475 10x3/uL (130-400); RBC 3.27 10x6/uL (4.20-6.10); RDW 15.1 % (11.5-14.5); WBC 14.3 10x3/uL (4.8-10.8)
[2020-05-26 05:07] VITALS: BP 128/78
[2020-05-26 06:09] LABS: ALBUMIN 1.8 g/dL (3.4-5.0); ALKALINE PHOSPHATASE 178 U/L (30-120); ALT (SGPT) 26 U/L (10-68); BILIRUBIN - TOTAL 0.26 mg/dL (0.2-1.3); CALC OSMOLALITY 267 mosm/kg (275-300); CALCIUM 8.5 mg/dL (8.5-10.1); CARBON DIOXIDE 23.6 mmol/L (21.0-32.0); CHLORIDE - SERUM 100 mmol/L (98-107); CREATININE - SERUM 0.8 mg/dL (0.6-1.3); GLUCOSE 96 mg/dL (74-106); POTASSIUM - SERUM 3.4 mmol/L (3.5-5.1); PROTEIN - SERUM 6.5 g/dL (6.4-8.2); SODIUM 134 mmol/L (136-145); UREA NITROGEN 13 mg/dL (7-18); eGFR NON AFRICAN AMERICAN > 90 mL/min (90-120)
[2020-05-26 09:13] VITALS: BP 119/77
--- NOTE | 2020-05-26 11:00 | NUR ---
LYING IN BED, AWAKE/ALERT/ORIENTED, T/R SELF WITH ASSIST AD DOROTA, CONT OF B/B WITH USE OF URINAL/BEDPAN AD DOROTA, DENIES PAIN/OTHER DISCOMFORT, CALL LIGHT/PHONE/WATER WITHIN REACH, NO S/S OF ACUTE DISTRESS OBSERVED.
[2020-05-26 15:15] VITALS: BP 132/82
--- NOTE | 2020-05-26 19:25 | NUR ---
REPORT RECEIVED, PT CARE ASSUMED. PT LYING IN BED WITH EYES CLOSED, NAD OBSERVED, OPENS EYES UPON ENTERING ROOM,
[2020-05-26 20:57] VITALS: BP 119/76
[2020-05-27 06:14] VITALS: BP 121/73
[2020-05-27 06:36] LABS: BASOPHILS 0.1 % (0-2); EOSINOPHILS 0.3 % (0-7); HEMOGLOBIN 8.3 g/dL (13.5-17.5); IMMATURE GRANULOCYTES 0.3 % (0-5); LYMPHOCYTE ABS# 0.99 10x3/uL (1.32-3.57); LYMPHOCYTES 6.8 % (15-50); MCH 27.4 pg (26.0-34.0); MCHC 30.7 g/dL (31.0-37.0); MCV 89.1 fL (80.0-100.0); MEAN PLATELET VOLUME 9.4 fL (7.4-10.4); MONOCYTES 9.5 % (2-11); NEUTROPHIL ABS# 12.15 10x3/uL (1.78-5.38); PLATELET COUNT 493 10x3/uL (130-400); RBC 3.03 10x6/uL (4.20-6.10); RDW 15.1 % (11.5-14.5); WBC 14.7 10x3/uL (4.8-10.8)
[2020-05-27 06:48] LABS: ALBUMIN 1.7 g/dL (3.4-5.0); ALKALINE PHOSPHATASE 162 U/L (30-120); ALT (SGPT) 21 U/L (10-68); BILIRUBIN - TOTAL 0.23 mg/dL (0.2-1.3); CALC OSMOLALITY 260 mosm/kg (275-300); CALCIUM 8.6 mg/dL (8.5-10.1); CHLORIDE - SERUM 98 mmol/L (98-107); CREATININE - SERUM 0.7 mg/dL (0.6-1.3); GLUCOSE 87 mg/dL (74-106); POTASSIUM - SERUM 3.3 mmol/L (3.5-5.1); PROTEIN - SERUM 6.4 g/dL (6.4-8.2); SODIUM 131 mmol/L (136-145); UREA NITROGEN 11 mg/dL (7-18); eGFR NON AFRICAN AMERICAN > 90 mL/min (90-120)
--- NOTE | 2020-05-27 07:20 | NUR ---
AM rounds, no needs voiced, brother in room, call light/phone/water within reach, no s/s of acute distress observed.
[2020-05-27 09:37] VITALS: BP 126/78
--- NOTE | 2020-05-27 12:30 | NUR ---
Found on floor by staff, pt stated "I wanted to sit in the chair", no visible injuuryu, no c/o new pain, placed in chair with chair alarm in plaqce nd put bed alarm on bed, call light/phone/water within reach, no s/s of acute distress observed,.
[2020-05-27 17:08] VITALS: BP 126/78
[2020-05-27 20:52] VITALS: BP 110/77
[2020-05-28 00:42] VITALS: BP 141/81
[2020-05-28 05:39] LABS: BASOPHILS 0.1 % (0-2); EOSINOPHILS 0.3 % (0-7); HEMATOCRIT 27.3 % (42.0-54.0); HEMOGLOBIN 8.4 g/dL (13.5-17.5); IMMATURE GRANULOCYTES 0.2 % (0-5); LYMPHOCYTES 6.9 % (15-50); MCH 27.4 pg (26.0-34.0); MCHC 30.8 g/dL (31.0-37.0); MCV 88.9 fL (80.0-100.0); MEAN PLATELET VOLUME 8.7 fL (7.4-10.4); MONOCYTES 10.5 % (2-11); NEUTROPHIL ABS# 10.72 10x3/uL (1.78-5.38); PLATELET COUNT 463 10x3/uL (130-400); RBC 3.07 10x6/uL (4.20-6.10); RDW 15.3 % (11.5-14.5); WBC 13.1 10x3/uL (4.8-10.8)
[2020-05-28 05:41] VITALS: BP 124/86
[2020-05-28 05:56] LABS: ALBUMIN 1.7 g/dL (3.4-5.0); ALKALINE PHOSPHATASE 147 U/L (30-120); ALT (SGPT) 21 U/L (10-68); BILIRUBIN - TOTAL 0.22 mg/dL (0.2-1.3); CALC OSMOLALITY 262 mosm/kg (275-300); CALCIUM 8.5 mg/dL (8.5-10.1); CARBON DIOXIDE 26.2 mmol/L (21.0-32.0); CHLORIDE - SERUM 98 mmol/L (98-107); CREATININE - SERUM 0.7 mg/dL (0.6-1.3); GLUCOSE 86 mg/dL (74-106); POTASSIUM - SERUM 3.2 mmol/L (3.5-5.1); PROTEIN - SERUM 6.4 g/dL (6.4-8.2); SODIUM 132 mmol/L (136-145); UREA NITROGEN 11 mg/dL (7-18); eGFR NON AFRICAN AMERICAN > 90 mL/min (90-120)
[2020-05-28 09:28] VITALS: BP 137/68
[2020-05-28 16:32] VITALS: BP 130/83
--- NOTE | 2020-05-28 19:20 | NUR ---
RECEIVED REPORT, WILL ASSUME CARE OF PT, SLEEPING, NO DISTRESS NOTICED, BED IS LOW, SRX3, CALL LIGHT IN REACH, WATCHING ON MONITOR, KRISTI ALARM IS ON, WILL CONTINUE PLAN OF CARE
--- NOTE | 2020-05-28 20:00 | NUR ---
INCONT. ASSIST OCEANOGRAPHER GEOLOGICAL WITH CLEAN UP AND LINEN CHANGE
[2020-05-28 20:30] VITALS: BP 130/91
[2020-05-29] VITALS (7 sets, daily range): BP systolic 110–128; BP diastolic 70–84
--- NOTE | 2020-05-29 05:41 | NUR ---
I have reviewed this patient and I concur with the Shift Assessment completed by the Licensed Practical Nurse today this shift.
[2020-05-29 08:48] LABS: ALBUMIN 1.9 g/dL (3.4-5.0); ALKALINE PHOSPHATASE 163 U/L (30-120); CALC OSMOLALITY 263 mosm/kg (275-300); CARBON DIOXIDE 23.9 mmol/L (21.0-32.0); CHLORIDE - SERUM 97 mmol/L (98-107); CREATININE - SERUM 0.7 mg/dL (0.6-1.3); GLUCOSE 87 mg/dL (74-106); SODIUM 133 mmol/L (136-145); UREA NITROGEN 11 mg/dL (7-18); eGFR NON AFRICAN AMERICAN > 90 mL/min (90-120)
[2020-05-29 08:49] LABS: ALT (SGPT) 28 U/L (10-68); POTASSIUM - SERUM 4.1 mmol/L (3.5-5.1)
[2020-05-29 09:19] LABS: BASOPHILS 0.3 % (0-2); EOSINOPHILS 0.4 % (0-7); HEMOGLOBIN 9.7 g/dL (13.5-17.5); IMMATURE GRANULOCYTES 0.4 % (0-5); LYMPHOCYTE ABS# 0.77 10x3/uL (1.32-3.57); LYMPHOCYTES 6.6 % (15-50); MCH 27.9 pg (26.0-34.0); MCHC 31.3 g/dL (31.0-37.0); MCV 89.1 fL (80.0-100.0); MEAN PLATELET VOLUME 9.1 fL (7.4-10.4); MONOCYTES 10.2 % (2-11); NEUTROPHIL ABS# 9.63 10x3/uL (1.78-5.38); NEUTROPHILS 82.1 % (40-80); PLATELET COUNT 493 10x3/uL (130-400); RBC 3.48 10x6/uL (4.20-6.10); RDW 15.3 % (11.5-14.5); WBC 11.7 10x3/uL (4.8-10.8)
--- NOTE | 2020-05-29 13:58 | NUR ---
Nutrition Consult/Reassessment: Poor PO intake reported. Nursing reports pt lethargic. Lung Bx results pending. Diet: Regular, Ensure TID Ht: 5'9"Wt: 100# (05/22)BMI: 14.8 (underweight) Labs noted: Na 133, Alb 1.9 Meds noted: Florajen, electrolyte protocol -Nutrition needs unchanged; no new wt available. -Encourage PO intake and honor food preferences. -Pt may benefit from appetite stimulant. -MD may consider nutrition support 2/2 reported poor PO intake and severe malnutrition if medically feasible and/or desired. -Need new wt. -RD will follow up within 2-3 days.
--- NOTE | 2020-05-29 19:30 | NUR ---
PT IN BED, EYES CLOSED, RESP EVEN AND UNLABORED, NO DISTRESS NOTED, CL IN REACH, SR UP X 2.
--- NOTE | 2020-05-30 03:02 | NUR ---
I have reviewed this patient and I concur with the Shift Assessment completed by the Licensed Practical Nurse today this shift.
[2020-05-30 04:26] VITALS: BP 115/76
[2020-05-30 06:59] LABS: ALBUMIN 1.7 g/dL (3.4-5.0); ALKALINE PHOSPHATASE 228 U/L (30-120); ALT (SGPT) 27 U/L (10-68); BILIRUBIN - TOTAL 0.16 mg/dL (0.2-1.3); CALC OSMOLALITY 265 mosm/kg (275-300); CALCIUM 9.2 mg/dL (8.5-10.1); CARBON DIOXIDE 24.9 mmol/L (21.0-32.0); CHLORIDE - SERUM 98 mmol/L (98-107); CREATININE - SERUM 0.7 mg/dL (0.6-1.3); GLUCOSE 90 mg/dL (74-106); POTASSIUM - SERUM 3.8 mmol/L (3.5-5.1); PROTEIN - SERUM 6.6 g/dL (6.4-8.2); SODIUM 133 mmol/L (136-145); UREA NITROGEN 12 mg/dL (7-18); eGFR NON AFRICAN AMERICAN > 90 mL/min (90-120)
[2020-05-30 07:07] LABS: BASOPHILS 0.1 % (0-2); EOSINOPHILS 0.6 % (0-7); HEMATOCRIT 29.5 % (42.0-54.0); HEMOGLOBIN 9.2 g/dL (13.5-17.5); IMMATURE GRANULOCYTES 0.2 % (0-5); LYMPHOCYTE ABS# 0.85 10x3/uL (1.32-3.57); LYMPHOCYTES 7.8 % (15-50); MCH 27.6 pg (26.0-34.0); MCHC 31.2 g/dL (31.0-37.0); MCV 88.6 fL (80.0-100.0); MEAN PLATELET VOLUME 8.9 fL (7.4-10.4); MONOCYTES 11.8 % (2-11); NEUTROPHIL ABS# 8.66 10x3/uL (1.78-5.38); NEUTROPHILS 79.5 % (40-80); PLATELET COUNT 498 10x3/uL (130-400); RBC 3.33 10x6/uL (4.20-6.10); RDW 15.4 % (11.5-14.5); WBC 10.9 10x3/uL (4.8-10.8)
[2020-05-30 08:00] VITALS: BP 123/78
[2020-05-30 11:00] VITALS: BP 121/81
--- NOTE | 2020-05-30 16:11 | MORECARE ---
CASE MANAGEMENT DISCHARGE SUMMARY PATIENT: EVELIA SONI UNIT: [id number] ADM DATE: 05/20/20 AGE: 60 : 60 SEX: M ROOM/BED: D.1656 AUTHOR: HERBIE LANGLEY PHYSICIAN: REFERRING PHYSICIAN: ALEXANDRA CARRANZA MD DATE OF SERVICE: 05/30/20 Case Management Discharge Planning Summary COMMENTS ENTERED DATE: 05/30/20 14:19 CT COMMENT TYPE: Discharge Planning REVIEWER: Liseth Sinclair O2 SAT 87% ON ROOM AIR/FAXED TO [facility]. DIONNE STATES OXYGEN TANK IS ON THE WAY. DCP REVIEW SUMMARY ANTICIPATED D/C DATE: EXPECTED LOS : CASE STATUS: DCP Initiated INITIAL REVIEW: 05/30/2020 INITIAL REVIEWER: Liseth Sinclair FINAL DISCHARGE DISPOSITION: : FINAL REVIEWER: FINAL REVIEW DATE: DCP Focus Questions & Answers DCP REV -DCP Review Added on: 05/30/20 4:04 pm QUESTION: ANSWER DCP Screen High Risk Factors: : Poor health literacy DCP Evaluation Patient's ability to cope with chronic illness : a. Adequate (0-3 ED visits in 6 mos., adequate financial resources, attends scheduled appts.) Mental health screen: : No mental health history Would patient like to participate in any Care Coordination programs (if applicable): : Not applicable Patient gives permission to discuss discharge plans with: (name, relationship and number) : Horace woodson - [phone] Physical Status: : Compromised nutritional status Physical Status: : Compromised skin integrity Physical Status: : Mobility impaired Partial Dependence, assistance required for: : Ambulation / Mobility Baseline cognitive status: : *Oriented to person, place, situation, time and present Family / Caregiver's ability to cope with chronic illness: : a. Adequate (ability to meet patient's medical needs, ensures patient attends medical appts.) Living Arrangements: : Home Alone with Support Living arrangements comments: : Patient was living alone prior to admission. Patient will now be staying with his brother Horace at [address] in [facility] Pharmacy name(s): : [facility] Does Patient have transportation to get home and to follow-up medical appointments when discharged from the hospital? : Yes Equipment in use: : None Other Equipment comments: : Patient has oxygen on. I did a walk test and he qualifies for oxygen, [facility] for [employer] agency name and contact information: : [facility] Psychosocial status: : Adult with cognitive limitations Psychosocial status: : Adult with physical limitations Functional screen assessment: : New onset in difficulty speaking Family / Caregiver's ability to cope with chronic illness: : a. Adequate (ability to meet patient's medical needs, ensures patient attends medical appts.) Is there a likelihood that the patient will require additional services to return to the preadmission environment? : Yes Results of this evaluation have been discussed with: : Family Patient and/or caregiver agree upon recommended discharge plan? : Yes Equipment needed for post hospitalization: : Other Other Equipment comments: : Oxygen with portability DCP Re-evaluation Would patient like to participate in any Care Coordination programs (if applicable): : Not applicable PATIENT: EVELIA SONI ENCOUNTER: [id number] MEDICAL RECORD#: [id number] ADMISSION DATE: 05/20/2020 DISCHARGE DATE: ATTENDING MD: ALEXANDRA NIEVES : AGE: 60 MARITAL STATUS: M DC PLAN ID: [id number] FACILITY: [facility] PRINTED ON: 05/30/20 16:11 CT All edits/amendments must be made on the electronic document DICTATION DATE: 05/30/201610 EVP MARKETING: SANG 05/30/201610 RPT#: [id number] DC DATE: STATUS: ADM IN [facility] [address] [place] [address] END OF REPORT
--- NOTE | 2020-05-30 16:23 | MORECARE ---
CASE MANAGEMENT DISCHARGE SUMMARY PATIENT: EVELIA SONI UNIT: [id number] ADM DATE: 05/20/20 AGE: 60 : 60 SEX: M ROOM/BED: D.2136 AUTHOR: KORIN,DOC PHYSICIAN: REFERRING PHYSICIAN: ALEXANDRA CARRANZA MD DATE OF SERVICE: 05/30/20 Case Management Discharge Planning Summary COMMENTS ENTERED DATE: 05/30/20 16:10 CT COMMENT TYPE: Discharge Planning REVIEWER: Liseth Sinclair CM met with patient about discharge planning/needs. He tells me he has oxygen at home, his brother states he does not. Room air oxygen saturation is 87% at rest. I have ordered oxygen from [facility] and it is at the bedside. His nephew is driving him to his brother's hoe at [facility] in [place]. Dr. Machado is his PCP. He seems oriented, but unable to answer some questions appropriately. I did call his brother to discuss discharge plans. His brother states he will never be left alone. I read his PT notes to his brother and informed him patient is very weak and discussed rehab, DME and home health. He states he was able to assist with activities. He would like home health for his brother. [facility] for [place]. I spoke with Madison at [facility] in [place] and clinical faxed. Home today with [facility]. CM will continue to follow and assist with discharge planning/needs. ENTERED DATE: 05/30/20 14:19 CT COMMENT TYPE: Discharge Planning REVIEWER: Liseth Sinclair O2 SAT 87% ON ROOM AIR/FAXED TO [facility]. DIONNE STATES OXYGEN TANK IS ON THE WAY. DCP REVIEW SUMMARY ANTICIPATED D/C DATE: EXPECTED LOS : CASE STATUS: DCP Initiated INITIAL REVIEW: 05/30/2020 INITIAL REVIEWER: Liseth Sinclair FINAL DISCHARGE DISPOSITION: : FINAL REVIEWER: FINAL REVIEW DATE: DCP Focus Questions & Answers DCP REV -DCP Review Added on: 05/30/20 4:04 pm QUESTION: ANSWER DCP Screen High Risk Factors: : Poor health literacy DCP Evaluation Patient's ability to cope with chronic illness : a. Adequate (0-3 ED visits in 6 mos., adequate financial resources, attends scheduled appts.) Mental health screen: : No mental health history Would patient like to participate in any Care Coordination programs (if applicable): : Not applicable Patient gives permission to discuss discharge plans with: (name, relationship and number) : Horace Soni - brother - [phone] Physical Status: : Compromised nutritional status Physical Status: : Compromised skin integrity Physical Status: : Mobility impaired Partial Dependence, assistance required for: : Ambulation / Mobility Baseline cognitive status: : *Oriented to person, place, situation, time and present Family / Caregiver's ability to cope with chronic illness: : a. Adequate (ability to meet patient's medical needs, ensures patient attends medical appts.) Living Arrangements: : Home Alone with Support Living arrangements comments: : Patient was living alone prior to admission. Patient will now be staying with his brother Horace at [address] [facility] Pharmacy name(s): : [facility] Does Patient have transportation to get home and to follow-up medical appointments when discharged from the hospital? : Yes Equipment in use: : None Other Equipment comments: : Patient has oxygen on. I did a walk test and he qualifies for oxygen, [facility] for [employer] [facility] agency name and contact information: : [facility] Psychosocial status: : Adult with cognitive limitations Psychosocial status: : Adult with physical limitations Functional screen assessment: : New onset in difficulty speaking Family / Caregiver's ability to cope with chronic illness: : a. Adequate (ability to meet patient's medical needs, ensures patient attends medical appts.) Is there a likelihood that the patient will require additional services to return to the preadmission environment? : Yes Results of this evaluation have been discussed with: : Family Patient and/or caregiver agree upon recommended discharge plan? : Yes Equipment needed for post hospitalization: : Other Other Equipment comments: : Oxygen with portability DCP Re-evaluation Would patient like to participate in any Care Coordination programs (if applicable): : Not applicable PATIENT: EVELIA SONI ENCOUNTER: [id number] MEDICAL RECORD#: [id number] ADMISSION DATE: 05/20/2020 DISCHARGE DATE: ATTENDING MD: ALEXANDRA NIEVES : AGE: 60 MARITAL STATUS: M DC PLAN ID: [id number] FACILITY: [facility] PRINTED ON: 05/30/20 16:23 CT All edits/amendments must be made on the electronic document DICTATION DATE: 05/30/201622 SPECIAL EDUCATION PROFESSIONAL: SANG 05/30/201622 RPT#: [id number] DC DATE: STATUS: ADM IN [facility] [address] [place] [address] END OF REPORT
--- NOTE | 2020-05-30 16:42 | NUR ---
discharged pt via wheelchair with nephew. discharge instructions provided to patient and nephew. left with home oxygen.
--- NOTE | 2020-05-31 10:11 | MORECARE ---
CASE MANAGEMENT DISCHARGE SUMMARY PATIENT: EVELIA SONI UNIT: [id number] ADM DATE: 05/20/20 AGE: 60 : 60 SEX: M ROOM/BED: D.2136 AUTHOR: KORIN,DOC PHYSICIAN: REFERRING PHYSICIAN: ALEXANDRA CARRANZA MD DATE OF SERVICE: 05/31/20 Case Management Discharge Planning Summary COMMENTS ENTERED DATE: 05/30/20 16:10 CT COMMENT TYPE: Discharge Planning REVIEWER: Liseth Sinclair CM met with patient about discharge planning/needs. He tells me he has oxygen at home, his brother states he does not. Room air oxygen saturation is 87% at rest. I have ordered oxygen from [facility] and it is at the bedside. His nephew is driving him to his brother's hoe at [facility] in [place]. Dr. Machado is his PCP. He seems oriented, but unable to answer some questions appropriately. I did call his brother to discuss discharge plans. His brother states he will never be left alone. I read his PT notes to his brother and informed him patient is very weak and discussed rehab, DME and home health. He states he was able to assist with activities. He would like home health for his brother. [facility] for [place]. I spoke with Madison at [facility] in [place] and clinical faxed. Home today with [facility]. CM will continue to follow and assist with discharge planning/needs. ENTERED DATE: 05/30/20 14:19 CT COMMENT TYPE: Discharge Planning REVIEWER: Liseth Sinclair O2 SAT 87% ON ROOM AIR/FAXED TO [facility]. DIONNE STATES OXYGEN TANK IS ON THE WAY. DCP REVIEW SUMMARY ANTICIPATED D/C DATE: EXPECTED LOS : CASE STATUS: DCP Initiated INITIAL REVIEW: 05/30/2020 INITIAL REVIEWER: Liseth Sinclair FINAL DISCHARGE DISPOSITION: : FINAL REVIEWER: FINAL REVIEW DATE: DCP Focus Questions & Answers DCP REV -DCP Review Added on: 05/30/20 4:04 pm QUESTION: ANSWER DCP Screen High Risk Factors: : Poor health literacy DCP Evaluation Patient's ability to cope with chronic illness : a. Adequate (0-3 ED visits in 6 mos., adequate financial resources, attends scheduled appts.) Mental health screen: : No mental health history Would patient like to participate in any Care Coordination programs (if applicable): : Not applicable Patient gives permission to discuss discharge plans with: (name, relationship and number) : Horace Soni - brother - [phone] Physical Status: : Compromised nutritional status Physical Status: : Compromised skin integrity Physical Status: : Mobility impaired Partial Dependence, assistance required for: : Ambulation / Mobility Baseline cognitive status: : *Oriented to person, place, situation, time and present Family / Caregiver's ability to cope with chronic illness: : a. Adequate (ability to meet patient's medical needs, ensures patient attends medical appts.) Living Arrangements: : Home Alone with Support Living arrangements comments: : Patient was living alone prior to admission. Patient will now be staying with his brother Horace at [address] [facility] Pharmacy [facility]): : [facility] Does Patient have transportation to get home and to follow-up medical appointments when discharged from the hospital? : Yes Equipment in use: : None Other Equipment comments: : Patient has oxygen on. I did a walk test and he qualifies for oxygen, [facility] [employer] [facility] agency name and contact information: : [facility] Psychosocial status: : Adult with cognitive limitations Psychosocial status: : Adult with physical limitations Functional screen assessment: : New onset in difficulty speaking Family / Caregiver's ability to cope with chronic illness: : a. Adequate (ability to meet patient's medical needs, ensures patient attends medical appts.) Is there a likelihood that the patient will require additional services to return to the preadmission environment? : Yes Results of this evaluation have been discussed with: : Family Patient and/or caregiver agree upon recommended discharge plan? : Yes Equipment needed for post hospitalization: : Other Other Equipment comments: : Oxygen with portability DCP Re-evaluation Would patient like to participate in any Care Coordination programs (if applicable): : Not applicable PATIENT: EVELIA SONI ENCOUNTER: [id number] MEDICAL RECORD#: [id number] ADMISSION DATE: 05/20/2020 DISCHARGE DATE: 05/30/2020 ATTENDING MD: ALEXANDRA NIEVES : AGE: 60 MARITAL STATUS: M DC PLAN ID: [id number] FACILITY: [facility] PRINTED ON: 05/31/20 10:11 CT All edits/amendments must be made on the electronic document DICTATION DATE: 05/31/20 1011 OUTSIDE EVENT SALES SPECIALIST: SANG 05/31/20 1011 RPT#: [id number] DC DATE:05/30/20 STATUS: DIS IN [facility] [address] [place] [address] END OF REPORT
--- NOTE | 2020-05-31 17:45 | MORECARE ---
CASE MANAGEMENT DISCHARGE SUMMARY PATIENT: EVELIA SONI UNIT: [id number] ADM DATE: 05/20/20 AGE: 60 : 60 SEX: M ROOM/BED: D.2136 AUTHOR: KORIN,DOC PHYSICIAN: REFERRING PHYSICIAN: ALEXANDRA CARRANZA MD DATE OF SERVICE: 05/31/20 Case Management Discharge Planning Summary COMMENTS ENTERED DATE: 05/30/20 16:10 CT COMMENT TYPE: Discharge Planning REVIEWER: Liseth Sinclair CM met with patient about discharge planning/needs. He tells me he has oxygen at home, his brother states he does not. Room air oxygen saturation is 87% at rest. I have ordered oxygen from [facility] and it is at the bedside. His nephew is driving him to his brother's hoe at [facility] in [place]. Dr. Machado is his PCP. He seems oriented, but unable to answer some questions appropriately. I did call his brother to discuss discharge plans. His brother states he will never be left alone. I read his PT notes to his brother and informed him patient is very weak and discussed rehab, DME and home health. He states he was able to assist with activities. He would like home health for his brother. [facility] for [place]. I spoke with Madison at [facility] in [place] and clinical faxed. Home today with [facility]. CM will continue to follow and assist with discharge planning/needs. ENTERED DATE: 05/30/20 14:19 CT COMMENT TYPE: Discharge Planning REVIEWER: Liseth Sinclair O2 SAT 87% ON ROOM AIR/FAXED TO [facility]. DIONNE STATES OXYGEN TANK IS ON THE WAY. DCP REVIEW SUMMARY ANTICIPATED D/C DATE: EXPECTED LOS : CASE STATUS: DCP Initiated INITIAL REVIEW: 05/30/2020 INITIAL REVIEWER: Liseth Sinclair FINAL DISCHARGE DISPOSITION: : FINAL REVIEWER: FINAL REVIEW DATE: DCP Focus Questions & Answers DCP REV -DCP Review Added on: 05/30/20 4:04 pm QUESTION: ANSWER DCP Screen High Risk Factors: : Poor health literacy DCP Evaluation Patient's ability to cope with chronic illness : a. Adequate (0-3 ED visits in 6 mos., adequate financial resources, attends scheduled appts.) Mental health screen: : No mental health history Would patient like to participate in any Care Coordination programs (if applicable): : Not applicable Patient gives permission to discuss discharge plans with: (name, relationship and number) : Horace Soni - brother - [phone] Physical Status: : Compromised nutritional status Physical Status: : Compromised skin integrity Physical Status: : Mobility impaired Partial Dependence, assistance required for: : Ambulation / Mobility Baseline cognitive status: : *Oriented to person, place, situation, time and present Family / Caregiver's ability to cope with chronic illness: : a. Adequate (ability to meet patient's medical needs, ensures patient attends medical appts.) Living Arrangements: : Home Alone with Support Living arrangements comments: : Patient was living alone prior to admission. Patient will now be staying with his brother Horace at [address] [facility] Pharmacy name(s): : [facility] Does Patient have transportation to get home and to follow-up medical appointments when discharged from the hospital? : Yes Equipment in use: : None Other Equipment comments: : Patient has oxygen on. I did a walk test and he qualifies for oxygen, [facility] agency name and contact information: : [facility] Psychosocial status: : Adult with cognitive limitations Psychosocial status: : Adult with physical limitations Functional screen assessment: : New onset in difficulty speaking Family / Caregiver's ability to cope with chronic illness: : a. Adequate (ability to meet patient's medical needs, ensures patient attends medical appts.) Is there a likelihood that the patient will require additional services to return to the preadmission environment? : Yes Results of this evaluation have been discussed with: : Family Patient and/or caregiver agree upon recommended discharge plan? : Yes Equipment needed for post hospitalization: : Other Other Equipment comments: : Oxygen with portability DCP Re-evaluation Would patient like to participate in any Care Coordination programs (if applicable): : Not applicable PATIENT: EVELIA SONI ENCOUNTER: [id number] MEDICAL RECORD#: [id number] ADMISSION DATE: 05/20/2020 DISCHARGE DATE: 05/30/2020 ATTENDING MD: ALEXANDRA NIEVES : AGE: 60 MARITAL STATUS: M DC PLAN ID: [id number] FACILITY: [facility] PRINTED ON: 05/31/20 17:45 CT All edits/amendments must be made on the electronic document DICTATION DATE: 05/31/201744 METAL HANDLER: SANG 05/31/201744 RPT#: [id number] DC DATE:05/30/20 STATUS: DIS IN [facility] [address] [place] [address] END OF REPORT
== END 2020-05-30 16:00 | disposition home health service (06) | DRG 871 ==
LOC: D.ER 10:33 → D.M2 12:18
PROVIDERS: Emergency Medicine; Family Medicine; General Practice; Radiology Vascular & Interventional Radiology; ADMIT Family Medicine; ATTEND Family Medicine
PROC: 0BBK3ZX Excision of Right Lung, Percutaneous Approach, Diagnostic (ICD-10-PCS; principal; 2020-05-25 09:11)
DX: A41.9 Sepsis, unspecified organism (principal); J18.9 Pneumonia, unspecified organism; J96.21 Acute and chronic respiratory failure with hypoxia; E43 Unspecified severe protein-calorie malnutrition; J44.0 Chronic obstructive pulmonary disease with (acute) lower respiratory infection; Z68.1 Body mass index [BMI] 19.9 or less, adult; M32.9 Systemic lupus erythematosus, unspecified; G40.909 Epilepsy, unspecified, not intractable, without status epilepticus; E78.5 Hyperlipidemia, unspecified; I10 Essential (primary) hypertension; Z20.822 Contact with and (suspected) exposure to COVID-19; E11.9 Type 2 diabetes mellitus without complications; D64.9 Anemia, unspecified; F17.200 Nicotine dependence, unspecified, uncomplicated

== ENCOUNTER 2020-06-13 12:16 | Outpatient (CLI) | payer MEDICARE ==
[~2020-06-13] VITALS: Ht 175.3 cm; Wt 51.8 kg
[2020-06-13 13:39] VITALS: BP 148/79; Ht 175.3 cm; Wt 51.8 kg
--- NOTE | 2020-06-13 14:16 | NUR ---
1400 PT STATES HE WEARS OXYGEN AT HOME IS AND ASKING IF WE CAN PUT HIM ON SOME OXYGEN. BASELINE O2 SAT 97% ON ROOM AIR. BNC 2L/MIN ON PT FOR COMFORT. NO INCREASE SOB AFTER IV BENADRYL. 1408 PT ASKING FOR PAIN MEDICATION. DR OCHOA CALLED AND ORDERS RECEIVED. 1418 PT RECEIVING FIRST UNIT OF BLOOD AFTER RECEIVING PREOP MEDS. PT HAS CALL LIGHT WITHIN REACH AND KNOWS TO NOTIFY US IF HE STARTS FEELING ANY DIFFERENT OR WITH CP,SOB OR ITCHING.
--- NOTE | 2020-06-13 14:45 | NUR ---
PT STATES PAIN DOWN TO 5/10 AFTER RECEIVING NORCO.
--- NOTE | 2020-06-13 15:45 | NUR ---
1ST UNIT COMPLETE AT 1530, IV LASIX GIVEN ORDERED. NO SIGNS OF REACTION. 2ND UNIT STARTED AT 1545. ASSISTED TO BR, VOIDED LARGE AMOUNT URINE. SIDERAILS UP, CALL LIGHT IN REACH
--- NOTE | 2020-06-13 17:02 | NUR ---
ASSISTED TO BR MULTIPLE TIMES, VOIDING LARGE AMOUNTS. PT WITHOUT CO VOICED
--- NOTE | 2020-06-13 17:23 | NUR ---
1710 TRANSFUSION COMPLETED. FLUSHING LINE WITH SALINE. STILL WITHOUT CO VOICED
--- NOTE | 2020-06-13 17:47 | NUR ---
SALINE FLUSH COMPLETE. IV REMOVED WITH CATH INTACT. SMALL COBAN TO AREA FOR PRESSURE. DISCHARGE INSTRUCTIONS REVIEWED W PATIENT. DISCHARGED VIA WC WITH FAMILY
== END 2020-06-13 17:45 | disposition home or self-care (01) ==
LOC: D.OPS 12:16
PROVIDERS: ATTEND Internal Medicine Hematology & Oncology
DX: D64.9 Anemia, unspecified (principal); C34.10 Malignant neoplasm of upper lobe, unspecified bronchus or lung

== ENCOUNTER → 2020-06-15 10:08 | Outpatient (CLI) | payer MEDICARE ==
[2020-06-13 13:39] VITALS: BMI 16.8
== END | disposition home or self-care (01) ==
LOC: D.MRI 10:00
PROVIDERS: ATTEND Internal Medicine Hematology & Oncology
DX: C34.80 Malignant neoplasm of overlapping sites of unspecified bronchus and lung (principal)

== ENCOUNTER 2020-06-26 07:20 | Day surgery (SDC) | payer MEDICARE ==
[2020-06-23 11:33] LABS: CALC OSMOLALITY 260 mosm/kg (275-300); CALCIUM 10.4 mg/dL (8.5-10.1); CARBON DIOXIDE 25.6 mmol/L (21.0-32.0); CHLORIDE - SERUM 93 mmol/L (98-107); CREATININE - SERUM 0.9 mg/dL (0.6-1.3); GLUCOSE 106 mg/dL (74-106); SODIUM 129 mmol/L (136-145); UREA NITROGEN 18 mg/dL (7-18); eGFR NON AFRICAN AMERICAN > 90 mL/min (90-120)
[2020-06-23 11:41] LABS: BASOPHILS 0.2 % (0-2); EOSINOPHILS 0.2 % (0-7); HEMATOCRIT 30.1 % (42.0-54.0); HEMOGLOBIN 9.1 g/dL (13.5-17.5); IMMATURE GRANULOCYTES 0.2 % (0-5); LYMPHOCYTE ABS# 1.12 10x3/uL (1.32-3.57); MCH 25.6 pg (26.0-34.0); MCHC 30.2 g/dL (31.0-37.0); MCV 84.8 fL (80.0-100.0); MEAN PLATELET VOLUME 8.6 fL (7.4-10.4); MONOCYTES 17.9 % (2-11); NEUTROPHILS 71.5 % (40-80); PLATELET COUNT 559 10x3/uL (130-400); RBC 3.55 10x6/uL (4.20-6.10); RDW 16.3 % (11.5-14.5); WBC 11.2 10x3/uL (4.8-10.8)
[2020-06-23 11:53] LABS: APTT 35.3 SECONDS (22.8-39.4); INR 1.11 (0.85-1.17); PROTIME 13.2 SECONDS (11.6-15.0)
[~2020-06-26] VITALS: Ht 175.3 cm; Wt 54.0 kg
[~2020-06-26 07:20] MED LIST changes: +BREO ELLIPTA 21 EACH
[2020-06-26 08:28] VITALS: BP 137/85; Ht 175.3 cm; Wt 54.0 kg
== END 2020-06-26 12:05 | disposition home or self-care (01) ==
LOC: D.OPS 07:20
PROVIDERS: Anesthesiology; ATTEND Surgery
DX: C34.90 Malignant neoplasm of unspecified part of unspecified bronchus or lung (principal); D68.69 Other thrombophilia